=== PATIENT | male | born 1965 | race Caucasian/White ===

== ENCOUNTER 2020-08-28 21:58 | Inpatient (IN) | payer MEDICAID ==
[~2020-08-28] VITALS: Ht 177.8 cm; Wt 70.3 kg
[~2020-08-28 21:58] MED LIST: ALBU2.5V13 NEB; APIX5TAB3 PO; ASPI-611 PO; CARV-50 PO; FOLI0.4T14 PO; FURO-150 PO; HYDR-4069 PO; ISOS30TA84 PO; NICO-687 TOP; NITR0.4T51 SL; OMEP-50 PO; POTA10CA44 PO; PYRI25TA4 PO; THIA50TA10 PO; TIOT18CA3 IH
[2020-08-28 23:21] LABS: HEMOGLOBIN 9.3 g/dl (14.0-17.9); MEAN CORPUSCULAR HGB CONC 32.6 g/dL (33.0-36.5)
[2020-08-28 23:23] LABS: BASOPHILS # (AUTO) 0.2 X10'3 (0-0.2); BASOPHILS % (AUTO) 1.2 % (0-1); EOSINOPHILS # (AUTO) 0.2 X10'3 (0-0.9); HEMATOCRIT 28.7 % (42.0-52.0); LYMPHOCYTES # (AUTO) 1.5 X10'3 (1.1-4.8); LYMPHOCYTES % (AUTO) 11.9 % (21-51); MEAN CORPUSCULAR HEMOGLOBIN 27.6 PG (27.0-31.0); MEAN CORPUSCULAR VOLUME 84.6 FL (78-98); MEAN PLATELET VOLUME 10.1 FL (7.4-10.4); MONOCYTES # (AUTO) 0.9 X10'3 (0-0.9); MONOCYTES % (AUTO) 7.4 % (2-12); NEUTROPHILS # (AUTO) 9.6 X10'3 (1.8-7.7); NEUTROPHILS % (AUTO) 77.5 % (42-75); PLATELET COUNT 332 X10'3 (140-440); RED BLOOD COUNT 3.39 X10'6 (4.70-6.10); RED CELL DISTRIBUTION WIDTH 16.7 % (11.5-14.5); WHITE BLOOD COUNT 12.4 X10'3 (4.5-11.0)
[2020-08-28 23:25] LABS: D-DIMER 1.08 MG/L FEU (0-0.50)
[2020-08-28 23:29] LABS: ALANINE AMINOTRANSFERASE 25 U/L (12-78); ALBUMIN 3.6 G/DL (3.4-5.0); ALBUMIN/GLOBULIN RATIO 0.9 (1.1-1.5); ALKALINE PHOSPHATASE 97 IU/L (46-116); ANION GAP 13 (8-16); ASPARTATE AMINO TRANSFERASE 23 U/L (10-37); BILIRUBIN,TOTAL 0.5 MG/DL (0.1-1.0); BLOOD UREA NITROGEN 41 MG/DL (7-18); BUN/CREATININE RATIO 13.1 (5.4-32.0); CALCIUM 9.3 MG/DL (8.5-10.1); CHLORIDE 102 MMOL/L (99-107); CREATININE 3.14 MG/DL (0.60-1.10); GLUCOSE 117 MG/DL (70-104); POTASSIUM 3.7 MMOL/L (3.5-5.1); SODIUM 139 MMOL/L (135-145); TOTAL CARBON DIOXIDE 24.5 MMOL/L (24-32); TOTAL PROTEIN 7.4 G/DL (6.4-8.2); eGFR 21 ML/MIN
[2020-08-28 23:35] LABS: MAGNESIUM 2.6 MG/DL (1.5-2.4)
[2020-08-28] MEDS ORDERED: morphine 4 MG/ML inj SYRINge IV ONE (23:50)
[2020-08-28] MEDS ORDERED: nitroGLYCERIN-Tridil 50MG/D5W 250 ML IV SCH (23:50)
[2020-08-29] VITALS (21 sets, daily range): BP systolic 130–180; BP diastolic 82–122
[2020-08-29] MEDS ORDERED: VITAMIN B6 PO (00:12)
[2020-08-29] MEDS ORDERED: ALBU18HF2 INH (00:12)
[2020-08-29] MEDS ORDERED: ISOS40TA14 PO (00:12)
[2020-08-29] MEDS ORDERED: nicotine 21mg patch - 24 hr TD ONE (00:20)
[2020-08-29] MEDS ORDERED: ALBUTEROL INHALER 1 PUFF/90 MCG INHALER IH PRN (00:20)
[2020-08-29 00:35] LABS: URINE AMPHETAMINE SCREEN NEGATIVE (Neg); URINE BARBITUATE SCREEN NEGATIVE (Neg); URINE BENZODIAZEPINES SCREEN NEGATIVE (Neg); URINE CANNABINOID SCREEN POSITIVE (Neg); URINE COCAINE SCREEN NEGATIVE (Neg); URINE METHADONE SCREEN NEGATIVE (Neg); URINE OPIATE SCREEN NEGATIVE (Neg); URINE PHENCYCLIDINE SCREEN NEGATIVE (Neg)
--- NOTE | 2020-08-29 02:26 | NUR ---
LABS DRAWN. GIVEN BLANKET AND WATER.
--- NOTE | 2020-08-29 03:30 | NUR ---
REPORT CALLED TO MALKA CARDOZA
--- NOTE | 2020-08-29 04:12 | NUR ---
PT ARRIVED TO ROOM VIA GURNEY AND WAS ABLE TO STAND AND WALK TO THE BED. THE PT WAS PLACED ON THE MONITOR AND ORIENTED TO THE ROOM, CALL LIGHT, AND PLAN OF CARE. HIS QUESTIONS ANSWERED.
[2020-08-29] MEDS ORDERED: nitroGLYCERIN-Tridil 50MG/D5W 250 ML IV PRN (04:40)
[2020-08-29] MEDS ORDERED: isosorbide mononitrate 30mg tab.SR.24H PO ONE (04:40)
[2020-08-29] MEDS ORDERED: carVEDilol 12.5mg tablet PO ONE (04:40)
[2020-08-29] MEDS ORDERED: hydrALAZINE 25 MG tablet PO ONE (04:40)
--- NOTE | 2020-08-29 04:45 | NUR ---
SPOKE WITH DR. TORRES ABOUT THE PT'S CONTINUED HYPERTENSION, RECEIVED ORDER TO GIVE AM BLOOD PRESSURE MEDICATIONS EARLY.
[2020-08-29] MEDS: hydrALAZINE 25 MG tablet PO SCH ×2 (06:45→16:01)
--- NOTE | 2020-08-29 07:23 | NUR ---
Problems reprioritized. Patient report given, questions answered & plan of care reviewed with SONY ACE.
[2020-08-29] MEDS ORDERED: furosemide 10 MG/1 ML 10ml inj IV SCH (08:00)
[2020-08-29] MEDS ORDERED: carVEDilol 12.5mg tablet PO SCH ×2 (08:00→20:00)
[2020-08-29] MEDS ORDERED: isosorbide mononitrate 30mg tab.SR.24H PO SCH (08:00)
[2020-08-29] MEDS: apixaban 5mg tablet PO SCH ×2 (08:48→19:29)
[2020-08-29] MEDS: aspirin 81mg tablet.DR PO SCH (08:48)
[2020-08-29] MEDS: thiamine 100mg tablet PO SCH (08:48)
[2020-08-29] MEDS: pantoprazole 40mg Tablet.DR PO SCH (08:48)
[2020-08-29] MEDS: folic acid 1mg tablet PO SCH (08:48)
--- NOTE | 2020-08-29 10:59 | NUR ---
Dr. Monahan patient rounds update. New order for EKG for chest pain, tums, tylenol and melatonin.
[2020-08-29] MEDS ORDERED: acetaminophen 325mg tablet PO PRN (11:20)
[2020-08-29] MEDS: calcium carbonate 500mg chew tablet PO PRN (11:49)
[2020-08-29] MEDS: acetaminophen 325mg tablet PO PRN ×2 (11:50→21:06)
[2020-08-29] MEDS ORDERED: PYRI-4 PO (12:51)
[2020-08-29] MEDS ORDERED: ISOS20TA8 PO (12:51)
[2020-08-29 14:28] LABS: BASOPHILS # (AUTO) 0.1 X10'3 (0-0.2); BASOPHILS % (AUTO) 1.3 % (0-1); EOSINOPHILS # (AUTO) 0.2 X10'3 (0-0.9); EOSINOPHILS % (AUTO) 2.4 % (0-6); HEMATOCRIT 24.7 % (42.0-52.0); HEMOGLOBIN 8.3 g/dl (14.0-17.9); LYMPHOCYTES # (AUTO) 1.1 X10'3 (1.1-4.8); LYMPHOCYTES % (AUTO) 12.6 % (21-51); MEAN CORPUSCULAR HEMOGLOBIN 28.2 PG (27.0-31.0); MEAN CORPUSCULAR HGB CONC 33.6 g/dL (33.0-36.5); MEAN PLATELET VOLUME 9.9 FL (7.4-10.4); MONOCYTES # (AUTO) 0.7 X10'3 (0-0.9); MONOCYTES % (AUTO) 8.6 % (2-12); NEUTROPHILS # (AUTO) 6.5 X10'3 (1.8-7.7); NEUTROPHILS % (AUTO) 75.1 % (42-75); PLATELET COUNT 245 X10'3 (140-440); RED BLOOD COUNT 2.95 X10'6 (4.70-6.10); RED CELL DISTRIBUTION WIDTH 16.6 % (11.5-14.5); WHITE BLOOD COUNT 8.6 X10'3 (4.5-11.0)
[2020-08-29 14:42] LABS: ALBUMIN 2.8 G/DL (3.4-5.0); ANION GAP 9 (8-16); BLOOD UREA NITROGEN 40 MG/DL (7-18); BUN/CREATININE RATIO 12.7 (5.4-32.0); CALCIUM 9.2 MG/DL (8.5-10.1); CHLORIDE 99 MMOL/L (99-107); CREATININE 3.16 MG/DL (0.60-1.10); GLUCOSE 120 MG/DL (70-104); MAGNESIUM 2.4 MG/DL (1.5-2.4); POTASSIUM 3.3 MMOL/L (3.5-5.1); SODIUM 134 MMOL/L (135-145); TOTAL CARBON DIOXIDE 25.8 MMOL/L (24-32); TROPONIN I 0.04 NG/ML (0.0-0.05); eGFR 20 ML/MIN
[2020-08-29 14:47] LABS: PHOSPHORUS 4.8 MG/DL (2.3-4.5)
[2020-08-29] MEDS ORDERED: potassium Cl 40MEQ/1/2NS 520ml 520 ML IV PRN (15:20)
[2020-08-29] MEDS ORDERED: potassium Cl 20 mEq SR tablet PO PRN ×2 (15:20)
[2020-08-29] MEDS ORDERED: magnesium Cl slow-release 64mg tablet PO PRN (15:20)
[2020-08-29] MEDS ORDERED: magnesium 4gm in 100ml NS 100 ML IV PRN (15:20)
[2020-08-29] MEDS: albuterol 2.5 MG/3 ML nebule NEB PRN ×2 (16:48→19:50)
--- NOTE | 2020-08-29 17:38 | NUR ---
Dr. Weiner at bedside, titrating nitro gtt up due to increasing BP. MD increased Coreg to 25mg BID.
--- NOTE | 2020-08-29 18:30 | NUR ---
Patient in room CICU 2007. I have received report from Love Gama RN and had the opportunity to ask questions and assume patient care.
[2020-08-29] MEDS: K and/or MAG REPLACEMENT MC SCH (20:00)
[2020-08-29] MEDS ORDERED: furosemide 20 MG/2 ML vial IV SCH (20:00)
[2020-08-29] MEDS ORDERED: Melatonin 3mg tablet PO SCH (21:00)
[2020-08-29] MEDS: Melatonin 3mg tablet PO SCH (21:00)
[2020-08-30] VITALS (21 sets, daily range): BP systolic 129–169; BP diastolic 79–119
[2020-08-30] MEDS: hydrALAZINE 25 MG tablet PO SCH ×4 (00:16→23:46)
[2020-08-30] MEDS: albuterol 2.5 MG/3 ML nebule NEB PRN ×2 (03:37→07:40)
--- NOTE | 2020-08-30 06:13 | NUR ---
Problems reprioritized. Patient report given, questions answered & plan of care reviewed with Teofilo ACE.
--- NOTE | 2020-08-30 06:25 | NUR ---
Patient in room CICU 2008. I have received report from Sergey ACE and had the opportunity to ask questions and assume patient care.
[2020-08-30 06:34] LABS: BASOPHILS # (AUTO) 0.1 X10'3 (0-0.2); EOSINOPHILS # (AUTO) 0.3 X10'3 (0-0.9); EOSINOPHILS % (AUTO) 3.4 % (0-6); HEMATOCRIT 24.8 % (42.0-52.0); HEMOGLOBIN 8.3 g/dl (14.0-17.9); LYMPHOCYTES # (AUTO) 1.3 X10'3 (1.1-4.8); LYMPHOCYTES % (AUTO) 17.4 % (21-51); MEAN CORPUSCULAR HEMOGLOBIN 28.2 PG (27.0-31.0); MEAN CORPUSCULAR HGB CONC 33.3 g/dL (33.0-36.5); MEAN CORPUSCULAR VOLUME 84.5 FL (78-98); MEAN PLATELET VOLUME 10.6 FL (7.4-10.4); MONOCYTES # (AUTO) 0.6 X10'3 (0-0.9); MONOCYTES % (AUTO) 7.6 % (2-12); NEUTROPHILS # (AUTO) 5.3 X10'3 (1.8-7.7); NEUTROPHILS % (AUTO) 69.6 % (42-75); PLATELET COUNT 225 X10'3 (140-440); RED BLOOD COUNT 2.94 X10'6 (4.70-6.10); RED CELL DISTRIBUTION WIDTH 16.5 % (11.5-14.5); WHITE BLOOD COUNT 7.6 X10'3 (4.5-11.0)
[2020-08-30 06:51] LABS: ANION GAP 13 (8-16); BLOOD UREA NITROGEN 43 MG/DL (7-18); CALCIUM 8.8 MG/DL (8.5-10.1); CHLORIDE 100 MMOL/L (99-107); CREATININE 3.31 MG/DL (0.60-1.10); GLUCOSE 115 MG/DL (70-104); POTASSIUM 3.1 MMOL/L (3.5-5.1); SODIUM 137 MMOL/L (135-145); TOTAL CARBON DIOXIDE 24.2 MMOL/L (24-32); eGFR 19 ML/MIN
[2020-08-30] MEDS: apixaban 5mg tablet PO SCH ×2 (07:11→20:31)
[2020-08-30] MEDS: thiamine 100mg tablet PO SCH (07:11)
[2020-08-30] MEDS: folic acid 1mg tablet PO SCH (07:11)
[2020-08-30] MEDS: pantoprazole 40mg Tablet.DR PO SCH (07:11)
[2020-08-30] MEDS: aspirin 81mg tablet.DR PO SCH (07:12)
[2020-08-30] MEDS: furosemide 20MG tablet PO SCH ×2 (07:12→20:31)
[2020-08-30 07:16] LABS: ANISOCYTOSIS 1+; HYPOCHROMASIA 1+; LARGE PLATELETS FEW; PLATELET ESTIMATE NORMAL; POLYCHROMASIA 1+
[2020-08-30] MEDS: K and/or MAG REPLACEMENT MC SCH (08:00)
[2020-08-30] MEDS ORDERED: EPIN11.7 IH (09:04)
--- NOTE | 2020-08-30 10:30 | NUR ---
MD aware of patient's BP, nitro has been off since 08/29, K 3.1 and Cr 3.31; orders received for 20 meq PO potassium. New orders received.
[2020-08-30] MEDS ORDERED: potassium Cl 20 mEq SR tablet PO STA (11:04)
[2020-08-30] MEDS ORDERED: NICOTINE POLACRILEX 2 MG LOZENGE BC PRN (11:25)
[2020-08-30] MEDS: nicotine 21mg patch - 24 hr TD SCH (11:44)
[2020-08-30] MEDS ORDERED: carVEDilol 12.5mg tablet PO ONE (14:30)
[2020-08-30 16:33] LABS: ABG HCO3 17.8 mmol/L (22.0-26.0); ABG PCO2 (T) 25.9 mmHg (35.0-48.0); ABG PO2 (T) 76.6 mmHg (75.0-100.0); ALLEN'S TEST POSITIVE; FCOHb 0.3 % (0.0-3.9); FLOW 3 L/min; FMetHb 0.4 % (0.0-1.5); FO2Hb 94.3 % (94-97); TOTAL HEMOGLOBIN 9.6 G/dl (14.0-18.0)
[2020-08-30] MEDS ORDERED: LORazepam 0.5 MG tablet PO ONE (16:50)
[2020-08-30] MEDS: isosorbide mononitrate 30mg tab.SR.24H PO SCH (16:56)
--- NOTE | 2020-08-30 17:05 | NUR ---
Report called to receiving nurseLatesha RN. Transferred via wheel chair with all Belongings: shoes, jeans, jacket, and wallet. home medications sent to pharmacy. Special Issues communicated to receiving nurse. Addendum: 08/30/20 at 1733 by Zhen Aden RN cell phone and binitrotoluene operator sent with patient
--- NOTE | 2020-08-30 17:25 | NUR ---
pt transferred to [address] with all belongings; oriented to room and call light.
--- NOTE | 2020-08-30 17:53 | NUR ---
Patient arrived from ICU per wheelchair. Alert and oriented x3. C/O of SOB bid writer elevated the head of bed full set os vitals taken pt's SP o2 is 98% on 3L NC. Encouraged patient to prone to improve lung expansion. Report received from Zhen ACE. Will continue to monitor. Dori ACE
--- NOTE | 2020-08-30 18:24 | NUR ---
Patient in room PCU 3025. I have received report from Dori ACE and had the opportunity to ask questions and assume patient care.
[2020-08-30] MEDS: Melatonin 3mg tablet PO SCH (20:31)
[2020-08-30] MEDS: carVEDilol 12.5mg tablet PO SCH (22:23)
--- NOTE | 2020-08-31 06:05 | NUR ---
Problems reprioritized. Patient report given, questions answered & plan of care reviewed with Cecy ACE.
--- NOTE | 2020-08-31 06:21 | NUR ---
Patient in room PCU 3025. I have received report from MALKA Catalan and had the opportunity to ask questions and assume patient care.
[2020-08-31 08:00] VITALS: BP 162/99
[2020-08-31] MEDS: folic acid 1mg tablet PO SCH (09:04)
[2020-08-31] MEDS: isosorbide mononitrate 30mg tab.SR.24H PO SCH (09:04)
[2020-08-31] MEDS: hydrALAZINE 25 MG tablet PO SCH ×3 (09:05→23:24)
[2020-08-31] MEDS: apixaban 5mg tablet PO SCH ×2 (09:05→20:03)
[2020-08-31] MEDS: pantoprazole 40mg Tablet.DR PO SCH (09:05)
[2020-08-31] MEDS: carVEDilol 12.5mg tablet PO SCH ×2 (09:06→20:03)
[2020-08-31] MEDS: furosemide 20MG tablet PO SCH ×2 (09:06→20:03)
[2020-08-31] MEDS: thiamine 100mg tablet PO SCH (09:06)
[2020-08-31] MEDS: aspirin 81mg tablet.DR PO SCH (09:07)
[2020-08-31] MEDS: nicotine 21mg patch - 24 hr TD SCH (09:08)
[2020-08-31 11:00] VITALS: BP 136/94
[2020-08-31 11:12] LABS: BASOPHILS # (AUTO) 0.1 X10'3 (0-0.2); BASOPHILS % (AUTO) 1.3 % (0-1); EOSINOPHILS # (AUTO) 0.2 X10'3 (0-0.9); EOSINOPHILS % (AUTO) 1.9 % (0-6); HEMATOCRIT 26.6 % (42.0-52.0); HEMOGLOBIN 8.7 g/dl (14.0-17.9); LYMPHOCYTES # (AUTO) 0.9 X10'3 (1.1-4.8); LYMPHOCYTES % (AUTO) 11.2 % (21-51); MEAN CORPUSCULAR HEMOGLOBIN 27.7 PG (27.0-31.0); MEAN CORPUSCULAR HGB CONC 32.6 g/dL (33.0-36.5); MEAN CORPUSCULAR VOLUME 85.1 FL (78-98); MEAN PLATELET VOLUME 9.9 FL (7.4-10.4); MONOCYTES # (AUTO) 0.5 X10'3 (0-0.9); MONOCYTES % (AUTO) 6.7 % (2-12); NEUTROPHILS # (AUTO) 6.3 X10'3 (1.8-7.7); NEUTROPHILS % (AUTO) 78.9 % (42-75); PLATELET COUNT 263 X10'3 (140-440); RED BLOOD COUNT 3.13 X10'6 (4.70-6.10); RED CELL DISTRIBUTION WIDTH 16.9 % (11.5-14.5)
[2020-08-31 11:21] LABS: ALANINE AMINOTRANSFERASE 27 U/L (12-78); ALBUMIN 3.1 G/DL (3.4-5.0); ALBUMIN/GLOBULIN RATIO 0.8 (1.1-1.5); ALKALINE PHOSPHATASE 91 IU/L (46-116); ANION GAP 11 (8-16); ASPARTATE AMINO TRANSFERASE 20 U/L (10-37); BILIRUBIN,TOTAL 0.3 MG/DL (0.1-1.0); BLOOD UREA NITROGEN 42 MG/DL (7-18); BUN/CREATININE RATIO 12.7 (5.4-32.0); CALCIUM 8.5 MG/DL (8.5-10.1); CHLORIDE 98 MMOL/L (99-107); CREATININE 3.32 MG/DL (0.60-1.10); GLUCOSE 105 MG/DL (70-104); MAGNESIUM 2.3 MG/DL (1.5-2.4); POTASSIUM 3.8 MMOL/L (3.5-5.1); SODIUM 132 MMOL/L (135-145); TOTAL CARBON DIOXIDE 23.4 MMOL/L (24-32); TOTAL PROTEIN 6.9 G/DL (6.4-8.2); eGFR 19 ML/MIN
--- NOTE | 2020-08-31 14:43 | NUR ---
Received TC from RN stating that pt requesting a snack d/t still being hungry after meals. Pt on a 2 g Na restricted diet with 100% PO intake throughout LOS. Recommend double protein BIDLD for satiety, d/w dietary. Noted that pt with CKD stage 4 secondary to hypertension per MD notes, nephrology following. Will monitor renal labs and make recommendations as appropriate. Addendum: 08/31/20 at [address] Amended: Links added.
[2020-08-31 15:00] VITALS: BP 157/109
[2020-08-31 18:00] VITALS: BP 155/107
--- NOTE | 2020-08-31 18:50 | NUR ---
Problems reprioritized. Patient report given, questions answered & plan of care reviewed with MALKA Fong. Addendum: 08/31/20 at 1855 by Cecy Sethi RN Incorrect chart.
--- NOTE | 2020-08-31 18:53 | NUR ---
Problems reprioritized. Patient report given, questions answered & plan of care reviewed with Yoli ACE.
[2020-08-31 20:00] VITALS: BP 155/107
[2020-08-31] MEDS: Melatonin 3mg tablet PO SCH (20:04)
[2020-08-31 22:39] VITALS: BP 165/110
--- NOTE | 2020-08-31 23:31 | NUR ---
patient complain of chest pain, level of 9. physician notified.
[2020-08-31] MEDS ORDERED: nitroGLYCERIN 1gm ointment UD TP ONE ×2 (23:40→23:55)
[2020-09-01 03:01] VITALS: BP 157/99
[2020-09-01 06:15] LABS: BASOPHILS # (AUTO) 0.1 X10'3 (0-0.2); BASOPHILS % (AUTO) 1.8 % (0-1); EOSINOPHILS # (AUTO) 0.2 X10'3 (0-0.9); EOSINOPHILS % (AUTO) 2.9 % (0-6); HEMATOCRIT 26.6 % (42.0-52.0); HEMOGLOBIN 8.6 g/dl (14.0-17.9); LYMPHOCYTES % (AUTO) 13.6 % (21-51); MEAN CORPUSCULAR HEMOGLOBIN 27.7 PG (27.0-31.0); MEAN CORPUSCULAR HGB CONC 32.4 g/dL (33.0-36.5); MEAN CORPUSCULAR VOLUME 85.4 FL (78-98); MEAN PLATELET VOLUME 9.8 FL (7.4-10.4); MONOCYTES # (AUTO) 0.6 X10'3 (0-0.9); MONOCYTES % (AUTO) 7.6 % (2-12); NEUTROPHILS # (AUTO) 5.6 X10'3 (1.8-7.7); NEUTROPHILS % (AUTO) 74.1 % (42-75); PLATELET COUNT 244 X10'3 (140-440); RED BLOOD COUNT 3.11 X10'6 (4.70-6.10); RED CELL DISTRIBUTION WIDTH 16.7 % (11.5-14.5); WHITE BLOOD COUNT 7.5 X10'3 (4.5-11.0)
--- NOTE | 2020-09-01 06:27 | NUR ---
Report given to and reviewed with Radha ACE.
[2020-09-01 06:44] LABS: ALANINE AMINOTRANSFERASE 30 U/L (12-78); ALBUMIN/GLOBULIN RATIO 0.8 (1.1-1.5); ALKALINE PHOSPHATASE 88 IU/L (46-116); ANION GAP 12 (8-16); ASPARTATE AMINO TRANSFERASE 18 U/L (10-37); BILIRUBIN,TOTAL 0.3 MG/DL (0.1-1.0); BLOOD UREA NITROGEN 47 MG/DL (7-18); BUN/CREATININE RATIO 15.1 (5.4-32.0); CHLORIDE 97 MMOL/L (99-107); CREATININE 3.11 MG/DL (0.60-1.10); GLUCOSE 150 MG/DL (70-104); MAGNESIUM 2.4 MG/DL (1.5-2.4); PHOSPHORUS 4.9 MG/DL (2.3-4.5); POTASSIUM 3.3 MMOL/L (3.5-5.1); SODIUM 132 MMOL/L (135-145); TOTAL CARBON DIOXIDE 22.9 MMOL/L (24-32); TOTAL PROTEIN 6.6 G/DL (6.4-8.2); TROPONIN I < 0.04 NG/ML (0.0-0.05); eGFR 21 ML/MIN
[2020-09-01 06:48] LABS: CALCIUM 8.4 MG/DL (8.5-10.1)
--- NOTE | 2020-09-01 07:14 | NUR ---
DR SNIDER PAGED FOR K OF 3.3 PATIENT DONITA ANGEL [id number], WITH BUN 47 CREAT 3.11, PATIENT K THIS AM WAS 3.3, DO YOU WANT TO REPLACE ? THANK YOU
[2020-09-01 07:44] VITALS: BP 172/110
[2020-09-01] MEDS: pantoprazole 40mg Tablet.DR PO SCH (08:32)
[2020-09-01] MEDS: nicotine 21mg patch - 24 hr TD SCH (08:32)
[2020-09-01] MEDS: apixaban 5mg tablet PO SCH ×2 (08:32→20:17)
[2020-09-01] MEDS: hydrALAZINE 25 MG tablet PO SCH ×2 (08:33→16:30)
[2020-09-01] MEDS: folic acid 1mg tablet PO SCH (08:33)
[2020-09-01] MEDS: furosemide 20MG tablet PO SCH (08:33)
[2020-09-01] MEDS: thiamine 100mg tablet PO SCH (08:33)
[2020-09-01] MEDS: aspirin 81mg tablet.DR PO SCH (08:33)
[2020-09-01] MEDS: isosorbide mononitrate 30mg tab.SR.24H PO SCH (08:33)
[2020-09-01] MEDS: carVEDilol 12.5mg tablet PO SCH ×2 (08:34→20:17)
[2020-09-01 12:13] VITALS: BP 144/93
--- NOTE | 2020-09-01 13:25 | NUR ---
Report received from EXTENSION AGENT, Radha
--- NOTE | 2020-09-01 13:28 | NUR ---
GAVE REPORT TO JANET FOR PATIENT BEING TRANSFERED TO [facility]
[2020-09-01 14:08] VITALS: BP 164/109
--- NOTE | 2020-09-01 15:08 | NUR ---
Kassandra RN titrated the O2 to 2lpm/nc. I did a spot check of O2 sat per the nurse's request. Patient was doing 90-91% and he said he is short of breath so I put him back to 3lpm/nc for now. Will let the primary nurse Kassandra when she comes back from lunch.
--- NOTE | 2020-09-01 16:10 | NUR ---
Dr Tillman notified of K+=3.3. states no replacement due to CKD.
--- NOTE | 2020-09-01 18:15 | NUR ---
Problems reprioritized. Patient report given, questions answered & plan of care reviewed with MALKA Stephenson.
--- NOTE | 2020-09-01 18:15 | NUR ---
Patient in room ADRIAN 349. I have received report from Kassandra ACE and had the opportunity to ask questions and assume patient care.
[2020-09-01 19:00] VITALS: BP 164/93
[2020-09-01 20:17] VITALS: BP 167/117
[2020-09-01] MEDS: Melatonin 3mg tablet PO SCH (20:18)
[2020-09-01] MEDS: furosemide 40mg tablet PO SCH (20:18)
--- NOTE | 2020-09-01 22:05 | NUR ---
Called MD regarding pt. c/o 03/14 pain to chest area. Pt. states that it is mid sternal, but does not want another EKG done and states usually when in the hospital with pain, they give him morphine. New order for MS 2mg, q2hr, prn pain.
[2020-09-01] MEDS: morphine 2 MG/ML inj. syringe IV PRN (22:37)
[2020-09-02] VITALS: BP 144/81
[2020-09-02] MEDS: hydrALAZINE 25 MG tablet PO SCH ×4 (00:05→23:31)
[2020-09-02] MEDS: morphine 2 MG/ML inj. syringe IV PRN ×4 (02:57→20:29)
--- NOTE | 2020-09-02 03:00 | NUR ---
Pt awoke and c/o pain to sternal region. Morphine given and MD contacted for any new orders. New order for troponin to be drawn with AM labs.
--- NOTE | 2020-09-02 03:30 | NUR ---
COMMUNITY ENGAGEMENT LEADER in with pt. to start new PIV as difficult stick.
--- NOTE | 2020-09-02 03:50 | NUR ---
manager ob started new PIV to left pinky finger.
[2020-09-02 06:18] LABS: EOSINOPHILS # (AUTO) 0.2 X10'3 (0-0.9); HEMATOCRIT 25.4 % (42.0-52.0); RED BLOOD COUNT 3.02 X10'6 (4.70-6.10)
[2020-09-02 06:20] LABS: BASOPHILS # (AUTO) 0.1 X10'3 (0-0.2); BASOPHILS % (AUTO) 1.4 % (0-1); EOSINOPHILS % (AUTO) 3.3 % (0-6); HEMOGLOBIN 8.4 g/dl (14.0-17.9); LYMPHOCYTES # (AUTO) 1.1 X10'3 (1.1-4.8); MEAN CORPUSCULAR HEMOGLOBIN 27.9 PG (27.0-31.0); MEAN CORPUSCULAR HGB CONC 33.1 g/dL (33.0-36.5); MEAN CORPUSCULAR VOLUME 84.2 FL (78-98); MEAN PLATELET VOLUME 10.4 FL (7.4-10.4); MONOCYTES # (AUTO) 0.8 X10'3 (0-0.9); MONOCYTES % (AUTO) 10.1 % (2-12); NEUTROPHILS # (AUTO) 5.3 X10'3 (1.8-7.7); NEUTROPHILS % (AUTO) 70.2 % (42-75); PLATELET COUNT 239 X10'3 (140-440); WHITE BLOOD COUNT 7.6 X10'3 (4.5-11.0)
--- NOTE | 2020-09-02 06:20 | NUR ---
Problems reprioritized. Patient report given, questions answered & plan of care reviewed with Hannah Riggins.
[2020-09-02 06:38] LABS: ALANINE AMINOTRANSFERASE 31 U/L (12-78); ALBUMIN 2.9 G/DL (3.4-5.0); ALBUMIN/GLOBULIN RATIO 0.8 (1.1-1.5); ALKALINE PHOSPHATASE 82 IU/L (46-116); ANION GAP 13 (8-16); ASPARTATE AMINO TRANSFERASE 20 U/L (10-37); BILIRUBIN,TOTAL 0.3 MG/DL (0.1-1.0); BLOOD UREA NITROGEN 49 MG/DL (7-18); BUN/CREATININE RATIO 15.9 (5.4-32.0); CALCIUM 8.8 MG/DL (8.5-10.1); CHLORIDE 100 MMOL/L (99-107); CREATININE 3.08 MG/DL (0.60-1.10); GLUCOSE 113 MG/DL (70-104); MAGNESIUM 2.2 MG/DL (1.5-2.4); PHOSPHORUS 4.9 MG/DL (2.3-4.5); POTASSIUM 3.2 MMOL/L (3.5-5.1); SODIUM 135 MMOL/L (135-145); TOTAL CARBON DIOXIDE 22.5 MMOL/L (24-32); TOTAL PROTEIN 6.5 G/DL (6.4-8.2); TROPONIN I < 0.04 NG/ML (0.0-0.05); eGFR 21 ML/MIN
[2020-09-02 07:26] VITALS: BP 155/99
[2020-09-02] MEDS: thiamine 100mg tablet PO SCH (10:14)
[2020-09-02] MEDS: aspirin 81mg tablet.DR PO SCH (10:14)
[2020-09-02] MEDS: pantoprazole 40mg Tablet.DR PO SCH (10:15)
[2020-09-02] MEDS: apixaban 5mg tablet PO SCH ×2 (10:15→20:23)
[2020-09-02] MEDS: furosemide 40mg tablet PO SCH ×2 (10:15→20:23)
[2020-09-02] MEDS: carVEDilol 12.5mg tablet PO SCH ×2 (10:15→20:25)
[2020-09-02] MEDS: folic acid 1mg tablet PO SCH (10:15)
[2020-09-02] MEDS: nicotine 21mg patch - 24 hr TD SCH (10:16)
[2020-09-02] MEDS: isosorbide mononitrate 30mg tab.SR.24H PO SCH (10:18)
[2020-09-02 11:44] VITALS: BP 164/102
--- NOTE | 2020-09-02 18:15 | NUR ---
O2 Sat at rest on room air:_88__% If below 89%: Recovery O2 Sat at rest on _3__LPM:_91__%:___% via NC (mask/nasal cannula, etc..) No further documentation is necessary. If O2 Sat did not drop below 89% on room air,ambulate patient on room air. O2 Sat while ambulating on room air:_79__% Recovery O2 Sat while ambulating on ___LPM:___% No further documentation is necessary. If patient does not drop below 89% while ambulating, he/she does not qualify for home O2.
--- NOTE | 2020-09-02 18:41 | NUR ---
Problems reprioritized. Patient report given, questions answered & plan of care reviewed with MALKA WEINBERG.
--- NOTE | 2020-09-02 18:50 | NUR ---
Paged with regard to replacing potassium as now down from 3.3 yesterday to 3.2 today.
--- NOTE | 2020-09-02 18:50 | NUR ---
Patient in room ADRIAN 349. I have received report from Hannah ACE and had the opportunity to ask questions and assume patient care.
[2020-09-02 19:40] VITALS: BP 164/92
--- NOTE | 2020-09-02 20:16 | NUR ---
paged Quinn CHAVEZ as potassium was 3.2 today.
[2020-09-02] MEDS ORDERED: magnesium Cl slow-release 64mg tablet PO PRN (20:20)
[2020-09-02] MEDS ORDERED: potassium Cl 40MEQ/1/2NS 520ml 520 ML IV PRN (20:20)
[2020-09-02] MEDS ORDERED: potassium Cl 20 mEq SR tablet PO PRN (20:20)
[2020-09-02] MEDS ORDERED: magnesium 4gm in 100ml NS 100 ML IV PRN (20:20)
[2020-09-02] MEDS: potassium Cl 20 mEq SR tablet PO PRN (20:23)
[2020-09-02] MEDS: Melatonin 3mg tablet PO SCH (20:28)
[2020-09-02] MEDS: albuterol 2.5 MG/3 ML nebule NEB PRN (20:53)
[2020-09-03] VITALS: BP 150/96
[2020-09-03] MEDS: potassium Cl 20 mEq SR tablet PO PRN (00:56)
[2020-09-03] MEDS: morphine 2 MG/ML inj. syringe IV PRN ×5 (04:38→21:14)
--- NOTE | 2020-09-03 06:30 | NUR ---
Problems reprioritized. Patient report given, questions answered & plan of care reviewed with Virginia ACE.
--- NOTE | 2020-09-03 06:46 | NUR ---
Patient in room ADRIAN 349. I have received report from MALKA Stephenson and had the opportunity to ask questions and assume patient care.
[2020-09-03 07:24] VITALS: BP 155/103
[2020-09-03 07:31] LABS: BASOPHILS # (AUTO) 0.1 X10'3 (0-0.2); BASOPHILS % (AUTO) 1.4 % (0-1); EOSINOPHILS # (AUTO) 0.3 X10'3 (0-0.9); EOSINOPHILS % (AUTO) 3.2 % (0-6); HEMATOCRIT 26.7 % (42.0-52.0); HEMOGLOBIN 8.7 g/dl (14.0-17.9); LYMPHOCYTES # (AUTO) 1.3 X10'3 (1.1-4.8); LYMPHOCYTES % (AUTO) 14.3 % (21-51); MEAN CORPUSCULAR HGB CONC 32.6 g/dL (33.0-36.5); MEAN PLATELET VOLUME 10.7 FL (7.4-10.4); MONOCYTES % (AUTO) 10.4 % (2-12); NEUTROPHILS # (AUTO) 6.5 X10'3 (1.8-7.7); NEUTROPHILS % (AUTO) 70.7 % (42-75); PLATELET COUNT 250 X10'3 (140-440); RED CELL DISTRIBUTION WIDTH 16.7 % (11.5-14.5); WHITE BLOOD COUNT 9.2 X10'3 (4.5-11.0)
[2020-09-03 07:50] LABS: ALANINE AMINOTRANSFERASE 31 U/L (12-78); ALBUMIN 3.1 G/DL (3.4-5.0); ALBUMIN/GLOBULIN RATIO 0.8 (1.1-1.5); ALKALINE PHOSPHATASE 86 IU/L (46-116); ANION GAP 10 (8-16); ASPARTATE AMINO TRANSFERASE 17 U/L (10-37); BILIRUBIN,TOTAL 0.3 MG/DL (0.1-1.0); BLOOD UREA NITROGEN 55 MG/DL (7-18); BUN/CREATININE RATIO 15.6 (5.4-32.0); CALCIUM 9.2 MG/DL (8.5-10.1); CHLORIDE 100 MMOL/L (99-107); CREATININE 3.52 MG/DL (0.60-1.10); GLUCOSE 116 MG/DL (70-104); MAGNESIUM 2.3 MG/DL (1.5-2.4); PHOSPHORUS 5.3 MG/DL (2.3-4.5); POTASSIUM 3.8 MMOL/L (3.5-5.1); SODIUM 135 MMOL/L (135-145); TOTAL CARBON DIOXIDE 24.9 MMOL/L (24-32); TOTAL PROTEIN 6.8 G/DL (6.4-8.2); eGFR 18 ML/MIN
[2020-09-03] MEDS: K and/or MAG REPLACEMENT MC SCH ×2 (08:00→19:16)
[2020-09-03] MEDS: furosemide 40mg tablet PO SCH ×2 (08:26→19:02)
[2020-09-03] MEDS: folic acid 1mg tablet PO SCH (08:26)
[2020-09-03] MEDS: carVEDilol 12.5mg tablet PO SCH ×2 (08:26→19:02)
[2020-09-03] MEDS: isosorbide mononitrate 30mg tab.SR.24H PO SCH (08:26)
[2020-09-03] MEDS: pantoprazole 40mg Tablet.DR PO SCH (08:27)
[2020-09-03] MEDS: hydrALAZINE 25 MG tablet PO SCH ×2 (08:27→16:44)
[2020-09-03] MEDS: apixaban 5mg tablet PO SCH ×2 (08:27→19:02)
[2020-09-03] MEDS: aspirin 81mg tablet.DR PO SCH (08:27)
[2020-09-03] MEDS: thiamine 100mg tablet PO SCH (08:27)
[2020-09-03] MEDS: nicotine 21mg patch - 24 hr TD SCH (08:31)
[2020-09-03 09:40] LABS: ANISOCYTOSIS 1+; PLATELET ESTIMATE NORMAL
[2020-09-03 09:41] LABS: HYPOCHROMASIA 1+; POIKILOCYTOSIS 1+; POLYCHROMASIA FEW
[2020-09-03 09:42] LABS: BURR CELLS FEW
[2020-09-03] MEDS ORDERED: nitroGLYCERIN 0.4mg SUBLingual tab SL PRN (10:20)
[2020-09-03] MEDS ORDERED: EPINEPHRINE IH PRN (10:20)
[2020-09-03] MEDS ORDERED: ipratropium 0.5 MG/2.5ML nebule IH PRN (10:40)
[2020-09-03] MEDS: calcium carbonate 500mg chew tablet PO PRN (11:14)
[2020-09-03 11:31] VITALS: BP 152/93
--- NOTE | 2020-09-03 11:58 | NUR ---
Initial: Pt presented to ER with shortness of breath and chest pain and was admitted with CHF exacerbation, per ED note. Per MD progress note, pt admitted with LAY in addition of CKD Stage 5, and acute hypoxemic respiratory failure possibly r/t heart failure. Phosphorous is elevated which may be related to LAY/CKD. Pt is currently receiving tums, which can help lower phosphorous. Pt is currently feeling some shortness of breath, however PO intake on sodium restricted diet is average 100% and is meeting nutrient needs. Last BM 09/02. Documented wt appears to be inconsistent with gained and loss 17kg within 5 days, may be an error due to bed scale. Will continue to monitor for nutrient needs. Recs: 1) Continue sodium restricted diet, double protein BIDLD 2) Bowel care per Rx 3) Scaled wt per Rx Addendum: 09/03/20 at [address] Amended: Links added. Addendum: 09/03/20 at [address] RD agree with patient note
[2020-09-03] MEDS ORDERED: hydrALAZINE 25 MG tablet PO SCH (13:00)
--- NOTE | 2020-09-03 18:24 | NUR ---
Problems reprioritized. Patient report given, questions answered & plan of care reviewed with MALKA Stephenson.
--- NOTE | 2020-09-03 18:30 | NUR ---
Patient in room ADRIAN 349. I have received report from Virginia Riggins and had the opportunity to ask questions and assume patient care.
[2020-09-03 19:00] VITALS: BP 180/106
[2020-09-03 19:50] VITALS: BP 156/96
[2020-09-03] MEDS ORDERED: carVEDilol 12.5mg tablet PO SCH (20:00)
[2020-09-03] MEDS ORDERED: magnesium hydroxide 30ml (MOM) UD suspension PO PRN (20:10)
--- NOTE | 2020-09-03 20:41 | NUR ---
Pt. c/o constipation/hard stools. New orders for colace and prn MOM added.
[2020-09-03] MEDS: albuterol 2.5 MG/3 ML nebule NEB PRN (20:49)
[2020-09-03] MEDS: docusate sod 100mg capsule PO SCH (21:10)
[2020-09-03] MEDS: Melatonin 3mg tablet PO SCH (21:10)
[2020-09-04] VITALS: BP 124/91
[2020-09-04] MEDS: hydrALAZINE 25 MG tablet PO SCH ×3 (00:23→17:52)
[2020-09-04] MEDS: morphine 2 MG/ML inj. syringe IV PRN ×4 (00:27→20:44)
[2020-09-04 06:27] LABS: BASOPHILS # (AUTO) 0.1 X10'3 (0-0.2); BASOPHILS % (AUTO) 1.5 % (0-1); EOSINOPHILS # (AUTO) 0.3 X10'3 (0-0.9); EOSINOPHILS % (AUTO) 3.5 % (0-6); HEMATOCRIT 24.2 % (42.0-52.0); HEMOGLOBIN 8.1 g/dl (14.0-17.9); LYMPHOCYTES # (AUTO) 1.2 X10'3 (1.1-4.8); LYMPHOCYTES % (AUTO) 13.7 % (21-51); MEAN CORPUSCULAR HEMOGLOBIN 28.1 PG (27.0-31.0); MEAN CORPUSCULAR HGB CONC 33.3 g/dL (33.0-36.5); MEAN CORPUSCULAR VOLUME 84.6 FL (78-98); MEAN PLATELET VOLUME 9.9 FL (7.4-10.4); MONOCYTES % (AUTO) 11.6 % (2-12); NEUTROPHILS % (AUTO) 69.7 % (42-75); PLATELET COUNT 229 X10'3 (140-440); RED BLOOD COUNT 2.87 X10'6 (4.70-6.10); RED CELL DISTRIBUTION WIDTH 16.9 % (11.5-14.5); WHITE BLOOD COUNT 8.6 X10'3 (4.5-11.0)
[2020-09-04 06:32] LABS: ANION GAP 9 (8-16); BILIRUBIN,TOTAL 0.2 MG/DL (0.1-1.0); BLOOD UREA NITROGEN 61 MG/DL (7-18); BUN/CREATININE RATIO 17.8 (5.4-32.0); CALCIUM 8.9 MG/DL (8.5-10.1); CHLORIDE 102 MMOL/L (99-107); CREATININE 3.43 MG/DL (0.60-1.10); GLUCOSE 130 MG/DL (70-104); MAGNESIUM 2.5 MG/DL (1.5-2.4); PHOSPHORUS 5.1 MG/DL (2.3-4.5); POTASSIUM 3.8 MMOL/L (3.5-5.1); SODIUM 138 MMOL/L (135-145); TOTAL PROTEIN 6.4 G/DL (6.4-8.2); eGFR 19 ML/MIN
[2020-09-04 06:33] LABS: ALANINE AMINOTRANSFERASE 26 U/L (12-78); ALBUMIN 2.9 G/DL (3.4-5.0); ALBUMIN/GLOBULIN RATIO 0.8 (1.1-1.5); ALKALINE PHOSPHATASE 80 IU/L (46-116); ASPARTATE AMINO TRANSFERASE 18 U/L (10-37)
--- NOTE | 2020-09-04 06:35 | NUR ---
Problems reprioritized. Patient report given, questions answered & plan of care reviewed with Freddie ACE.
--- NOTE | 2020-09-04 06:48 | NUR ---
Patient in room ADRIAN 349. I have received report from Seema ACE and had the opportunity to ask questions and assume patient care.
[2020-09-04 07:00] VITALS: BP 152/89
[2020-09-04 07:39] VITALS: BP 152/89
[2020-09-04] MEDS: pantoprazole 40mg Tablet.DR PO SCH (07:53)
[2020-09-04] MEDS: docusate sod 100mg capsule PO SCH ×2 (07:54→20:51)
[2020-09-04] MEDS: pyridoxine 50mg tablet PO SCH (07:54)
[2020-09-04] MEDS: aspirin 81mg tablet.DR PO SCH (07:54)
[2020-09-04] MEDS: thiamine 100mg tablet PO SCH (07:55)
[2020-09-04] MEDS: carVEDilol 12.5mg tablet PO SCH ×2 (07:55→20:49)
[2020-09-04] MEDS: folic acid 1mg tablet PO SCH (07:56)
[2020-09-04] MEDS: furosemide 40mg tablet PO SCH ×2 (07:56→20:50)
[2020-09-04] MEDS: apixaban 5mg tablet PO SCH ×2 (07:56→20:51)
[2020-09-04] MEDS: nicotine 21mg patch - 24 hr TD SCH (07:56)
[2020-09-04] MEDS: K and/or MAG REPLACEMENT MC SCH ×2 (08:00→20:00)
[2020-09-04] MEDS: acetaminophen 325mg tablet PO PRN (08:40)
--- NOTE | 2020-09-04 10:44 | NUR ---
Assessment completed by Brandi STANLEY, reviewed and documented appropriately.
[2020-09-04 11:00] VITALS: BP 123/63
--- NOTE | 2020-09-04 18:43 | NUR ---
Problems reprioritized. Patient report given, questions answered & plan of care reviewed with Porsche ACE.
--- NOTE | 2020-09-04 18:45 | NUR ---
Patient in room ADRIAN 349. I have received report from CHETAN ACE and had the opportunity to ask questions and assume patient care.
[2020-09-04 19:14] VITALS: BP 171/103
[2020-09-04] MEDS: Melatonin 3mg tablet PO SCH (20:46)
[2020-09-05] VITALS: BP 156/94
[2020-09-05] MEDS: hydrALAZINE 25 MG tablet PO SCH ×2 (00:32→08:31)
[2020-09-05 06:28] LABS: BASOPHILS # (AUTO) 0.2 X10'3 (0-0.2); HEMOGLOBIN 8.2 g/dl (14.0-17.9); MEAN CORPUSCULAR VOLUME 84.9 FL (78-98); WHITE BLOOD COUNT 8.7 X10'3 (4.5-11.0)
--- NOTE | 2020-09-05 06:30 | NUR ---
Problems reprioritized. Patient report given, questions answered & plan of care reviewed with TODD ACE.
[2020-09-05 06:36] LABS: BASOPHILS % (AUTO) 2.1 % (0-1); EOSINOPHILS # (AUTO) 0.3 X10'3 (0-0.9); EOSINOPHILS % (AUTO) 3.9 % (0-6); HEMATOCRIT 24.8 % (42.0-52.0); LYMPHOCYTES # (AUTO) 1.3 X10'3 (1.1-4.8); LYMPHOCYTES % (AUTO) 14.9 % (21-51); MEAN CORPUSCULAR HEMOGLOBIN 28.1 PG (27.0-31.0); MEAN CORPUSCULAR HGB CONC 33.1 g/dL (33.0-36.5); MEAN PLATELET VOLUME 10.7 FL (7.4-10.4); MONOCYTES # (AUTO) 0.9 X10'3 (0-0.9); MONOCYTES % (AUTO) 10.8 % (2-12); NEUTROPHILS % (AUTO) 68.3 % (42-75); PLATELET COUNT 220 X10'3 (140-440); RED BLOOD COUNT 2.92 X10'6 (4.70-6.10); RED CELL DISTRIBUTION WIDTH 16.9 % (11.5-14.5)
[2020-09-05 06:51] LABS: ALANINE AMINOTRANSFERASE 28 U/L (12-78); ALBUMIN/GLOBULIN RATIO 0.8 (1.1-1.5); ALKALINE PHOSPHATASE 80 IU/L (46-116); ANION GAP 12 (8-16); ASPARTATE AMINO TRANSFERASE 16 U/L (10-37); BILIRUBIN,TOTAL 0.2 MG/DL (0.1-1.0); BLOOD UREA NITROGEN 64 MG/DL (7-18); BUN/CREATININE RATIO 20.2 (5.4-32.0); CALCIUM 8.7 MG/DL (8.5-10.1); CHLORIDE 97 MMOL/L (99-107); CREATININE 3.17 MG/DL (0.60-1.10); GLUCOSE 137 MG/DL (70-104); MAGNESIUM 2.4 MG/DL (1.5-2.4); PHOSPHORUS 4.9 MG/DL (2.3-4.5); POTASSIUM 3.7 MMOL/L (3.5-5.1); SODIUM 133 MMOL/L (135-145); TOTAL CARBON DIOXIDE 24.3 MMOL/L (24-32); TOTAL PROTEIN 6.6 G/DL (6.4-8.2); eGFR 20 ML/MIN
[2020-09-05] MEDS: morphine 2 MG/ML inj. syringe IV PRN ×3 (07:43→14:26)
[2020-09-05] MEDS: K and/or MAG REPLACEMENT MC SCH (08:00)
[2020-09-05] MEDS: nicotine 21mg patch - 24 hr TD SCH (08:30)
[2020-09-05] MEDS: pantoprazole 40mg Tablet.DR PO SCH (08:30)
[2020-09-05] MEDS: docusate sod 100mg capsule PO SCH (08:32)
[2020-09-05] MEDS: carVEDilol 12.5mg tablet PO SCH (08:32)
[2020-09-05] MEDS: apixaban 5mg tablet PO SCH (08:33)
[2020-09-05] MEDS: folic acid 1mg tablet PO SCH (08:33)
[2020-09-05] MEDS: aspirin 81mg tablet.DR PO SCH (08:33)
[2020-09-05] MEDS: thiamine 100mg tablet PO SCH (08:34)
[2020-09-05] MEDS: furosemide 40mg tablet PO SCH (08:34)
[2020-09-05] MEDS: pyridoxine 50mg tablet PO SCH (08:34)
[2020-09-05 09:20] VITALS: BP 161/102
[2020-09-05] MEDS ORDERED: APIX5TAB3 PO (09:54)
[2020-09-05] MEDS ORDERED: TIOT18CA3 IH (09:54)
[2020-09-05] MEDS ORDERED: ALBU18HF2 INH (09:54)
[2020-09-05 11:00] VITALS: BP 128/82
--- NOTE | 2020-09-05 11:41 | NUR ---
PAGER ID: [phone] MESSAGE: Kya Med/surg [id number] Pt : Elisabeth. Rm: [id number]. Pt D/C'd requesting pain med for home. thanks.
--- NOTE | 2020-09-05 12:09 | NUR ---
Pt D/C'd . pt does not have a ride home. will contact [facility] for ride.
[2020-09-05] MEDS ORDERED: HYDR-3965 PO (15:16)
--- NOTE | 2020-09-05 16:07 | NUR ---
pt discharged home in stable condition. O2 home qualification done prior discharge. Pt O2sat 92-94% on R/A during ambulation. pt requesting pain med for home. notified, encouraged pt to take Tylenol and Ibuprofen combined. Discharge and medication instruction given to pt. IV removed. Pt was taken to main lobby on w/c. Left the hospital via [place] transfer [facility].
== END 2020-09-05 15:59 | disposition home or self-care (01) | DRG 194 ==
LOC: ER 21:59 → ED HOLD 08-29 00:21 → CICU 2S 08-29 03:45 → PCU 3S 08-30 17:43 → SUR 3N 09-01 13:57
PROVIDERS: ADMIT Internal Medicine; ATTEND Internal Medicine
DX: I13.0 Hypertensive heart and chronic kidney disease with heart failure and stage 1 through stage 4 chronic kidney disease, or unspecified chronic kidney disease (principal); I50.23 Acute on chronic systolic (congestive) heart failure; I16.1 Hypertensive emergency; J96.01 Acute respiratory failure with hypoxia; N18.4 Chronic kidney disease, stage 4 (severe); J44.9 Chronic obstructive pulmonary disease, unspecified; D63.8 Anemia in other chronic diseases classified elsewhere; I31.3 Pericardial effusion (noninflammatory); Z95.1 Presence of aortocoronary bypass graft; Z82.49 Family history of ischemic heart disease and other diseases of the circulatory system; I25.2 Old myocardial infarction; I25.119 Atherosclerotic heart disease of native coronary artery with unspecified angina pectoris; K59.00 Constipation, unspecified; N17.9 Acute kidney failure, unspecified; Z87.891 Personal history of nicotine dependence; Z91.19 Patient's noncompliance with other medical treatment and regimen; Z79.899 Other long term (current) drug therapy
CPT/HCPCS: 36415; 36600; 71045; 80048; 80053; 80305; 82803; 83735; 83880; 84100; 84484; 85008; 85018; 85025; 85379; 85610; 87081; 93005; 93308; 94640; 94760; 96365; 96375; 99291; G0378; J1940; J2270; J3490

== ENCOUNTER 2020-10-10 19:29 | Inpatient (IN) | payer MEDICAID ==
[~2020-10-10] VITALS: Ht 177.8 cm; Wt 75.0 kg
[~2020-10-10 19:29] MED LIST changes: +ALBU18HF2 INH; -ALBU2.5V13 NEB; +EPIN11.7 IH; +ISOS20TA8 PO; -ISOS30TA84 PO; -NICO-687 TOP; +PYRI-4 PO; -PYRI25TA4 PO
[2020-10-10 20:17] LABS: BASOPHILS # (AUTO) 0.1 X10'3 (0-0.2); BASOPHILS % (AUTO) 0.8 % (0-1); EOSINOPHILS # (AUTO) 0.1 X10'3 (0-0.9); EOSINOPHILS % (AUTO) 0.8 % (0-6); HEMATOCRIT 28.7 % (42.0-52.0); HEMOGLOBIN 9.4 g/dl (14.0-17.9); LYMPHOCYTES # (AUTO) 1.3 X10'3 (1.1-4.8); LYMPHOCYTES % (AUTO) 13.2 % (21-51); MEAN CORPUSCULAR HEMOGLOBIN 26.4 PG (27.0-31.0); MEAN CORPUSCULAR HGB CONC 32.6 g/dL (33.0-36.5); MEAN CORPUSCULAR VOLUME 81.2 FL (78-98); MEAN PLATELET VOLUME 10.2 FL (7.4-10.4); MONOCYTES # (AUTO) 0.7 X10'3 (0-0.9); MONOCYTES % (AUTO) 7.5 % (2-12); NEUTROPHILS # (AUTO) 7.6 X10'3 (1.8-7.7); NEUTROPHILS % (AUTO) 77.7 % (42-75); PLATELET COUNT 235 X10'3 (140-440); RED BLOOD COUNT 3.54 X10'6 (4.70-6.10); RED CELL DISTRIBUTION WIDTH 19.2 % (11.5-14.5); WHITE BLOOD COUNT 9.7 X10'3 (4.5-11.0)
[2020-10-10 20:27] LABS: ALANINE AMINOTRANSFERASE 25 U/L (12-78); ALBUMIN 3.1 G/DL (3.4-5.0); ALBUMIN/GLOBULIN RATIO 0.8 (1.1-1.5); ALKALINE PHOSPHATASE 105 IU/L (46-116); ANION GAP 15 (8-16); ASPARTATE AMINO TRANSFERASE 30 U/L (10-37); BILIRUBIN,TOTAL 0.4 MG/DL (0.1-1.0); BLOOD UREA NITROGEN 37 MG/DL (7-18); BUN/CREATININE RATIO 11.4 (5.4-32.0); CALCIUM 8.3 MG/DL (8.5-10.1); CHLORIDE 99 MMOL/L (99-107); CREATININE 3.25 MG/DL (0.60-1.10); GLUCOSE 108 MG/DL (70-104); POTASSIUM 3.4 MMOL/L (3.5-5.1); SODIUM 136 MMOL/L (135-145); TOTAL PROTEIN 7.1 G/DL (6.4-8.2); eGFR 20 ML/MIN
[2020-10-10 20:36] LABS: TROPONIN I 0.14 NG/ML (0.0-0.05)
[2020-10-10 21:14] LABS: ANISOCYTOSIS 2+; ELLIPTOCYTES 1+; PLATELET ESTIMATE NORMAL
[2020-10-10 21:16] LABS: SPHEROCYTES FEW
[2020-10-10 21:17] LABS: LARGE PLATELETS FEW; POIKILOCYTOSIS FEW; POLYCHROMASIA FEW
[2020-10-10] MEDS ORDERED: FURO-149 PO (23:24)
[2020-10-10] MEDS ORDERED: VALS1TAB76 PO (23:25)
--- NOTE | 2020-10-11 00:23 | NUR ---
pt moved to hospital bed for comfort. denies any needs at this time other than pain of 8/10 chest pain. was relayed to dr dugan as he was talking with her in room
[2020-10-11] MEDS ORDERED: potassium Cl 40MEQ/1/2NS 520ml 520 ML IV PRN ×2 (01:20)
[2020-10-11] MEDS ORDERED: magnesium Cl slow-release 64mg tablet PO PRN (01:20)
[2020-10-11] MEDS ORDERED: potassium Cl 20 mEq SR tablet PO PRN (01:20)
[2020-10-11] MEDS ORDERED: ondansetron/PF 4mg/2ml inj IV PRN (01:20)
[2020-10-11] MEDS ORDERED: ipratropium/albuterol 3ml nebule NEB PRN ×2 (01:20)
[2020-10-11] MEDS ORDERED: magnesium 2GM in 50ml NS 50 ML IV PRN (01:20)
[2020-10-11] MEDS ORDERED: magnesium 4gm in 100ml NS 100 ML IV PRN (01:20)
[2020-10-11] MEDS: morphine 2 MG/ML inj. syringe IV PRN ×4 (01:46→20:45)
[2020-10-11] MEDS: furosemide 10 MG/1 ML 10ml inj IV SCH ×2 (07:08→20:31)
[2020-10-11] MEDS: heparin, porcine 5000 units/ml vial SQ SCH ×2 (07:09→20:32)
[2020-10-11] MEDS: apixaban 2.5mg tablet PO SCH ×2 (07:09→20:31)
[2020-10-11] MEDS: carVEDilol 12.5mg tablet PO SCH ×2 (07:09→20:31)
[2020-10-11] MEDS: losartan 50mg tablet PO SCH (07:09)
[2020-10-11] MEDS: K and/or MAG REPLACEMENT MC SCH ×2 (08:00→20:00)
[2020-10-11] MEDS: potassium Cl 20 mEq SR tablet PO PRN ×2 (09:49→20:31)
--- NOTE | 2020-10-11 09:54 | NUR ---
ECHO AT BEDSIDE
--- NOTE | 2020-10-11 18:08 | NUR ---
PT REQUESTING PAIN MEDICATION. I EXPLAINED THAT I CAN NOT GIVE ANY MORE PAIN MEDS FOR 50 MINUTS. PT WAS COOPERATIVE AND VERBALIZED UNDERSTANDING.
--- NOTE | 2020-10-11 19:30 | NUR ---
Patient in room PCU 3018. I have received report from Kemi ACE and had the opportunity to ask questions and assume patient care.
--- NOTE | 2020-10-11 19:30 | NUR ---
Received report from Balbina ACE in the ED
--- NOTE | 2020-10-11 19:40 | NUR ---
Patient arrived on the unit, vitals signs stable, belongings with him.
[2020-10-11 22:00] VITALS: BP 105/70
[2020-10-12] MEDS: potassium Cl 20 mEq SR tablet PO PRN ×2 (00:22→04:51)
--- NOTE | 2020-10-12 00:29 | NUR ---
Dr. miguel PAGER ID: [phone] MESSAGE: Re: Charlie Barber 55M rm [id number]. Here for SOB and CHF exacerbation. Patient having difficulty falling asleep, takes Melatonin at home. May we order Melatonin for him? Thank you. Kemi Arias.
[2020-10-12] MEDS ORDERED: Melatonin 3mg tablet PO ONE (00:30)
[2020-10-12 02:00] VITALS: BP 115/72
--- NOTE | 2020-10-12 06:13 | NUR ---
Orientee documentation: I have reviewed and agree with all medications, interventions, assessments performed and documented by Kemi ACE.
--- NOTE | 2020-10-12 06:13 | NUR ---
Problems reprioritized. Patient report given, questions answered & plan of care reviewed with Acacia ACE.
--- NOTE | 2020-10-12 06:13 | NUR ---
Problems reprioritized. Patient report given, questions answered & plan of care reviewed with Acacia Isaacs RN.
--- NOTE | 2020-10-12 06:31 | NUR ---
Patient in room PCU 3018. I have received report from Bronson ACE and had the opportunity to ask questions and assume patient care.
[2020-10-12 07:00] VITALS: BP 118/73
[2020-10-12 07:33] LABS: BASOPHILS # (AUTO) 0.1 X10'3 (0-0.2); BASOPHILS % (AUTO) 1.1 % (0-1); EOSINOPHILS # (AUTO) 0.1 X10'3 (0-0.9); EOSINOPHILS % (AUTO) 1.6 % (0-6); HEMATOCRIT 25.6 % (42.0-52.0); HEMOGLOBIN 8.4 g/dl (14.0-17.9); LYMPHOCYTES # (AUTO) 1.2 X10'3 (1.1-4.8); LYMPHOCYTES % (AUTO) 19.7 % (21-51); MEAN CORPUSCULAR HEMOGLOBIN 27.1 PG (27.0-31.0); MEAN CORPUSCULAR HGB CONC 32.9 g/dL (33.0-36.5); MEAN CORPUSCULAR VOLUME 82.1 FL (78-98); MEAN PLATELET VOLUME 9.8 FL (7.4-10.4); MONOCYTES # (AUTO) 0.6 X10'3 (0-0.9); MONOCYTES % (AUTO) 8.9 % (2-12); NEUTROPHILS # (AUTO) 4.3 X10'3 (1.8-7.7); NEUTROPHILS % (AUTO) 68.7 % (42-75); PLATELET COUNT 181 X10'3 (140-440); RED BLOOD COUNT 3.11 X10'6 (4.70-6.10); RED CELL DISTRIBUTION WIDTH 18.5 % (11.5-14.5); WHITE BLOOD COUNT 6.2 X10'3 (4.5-11.0)
[2020-10-12] MEDS: K and/or MAG REPLACEMENT MC SCH (08:00)
[2020-10-12 08:04] LABS: ALBUMIN 2.5 G/DL (3.4-5.0); ANION GAP 12 (8-16); BLOOD UREA NITROGEN 63 MG/DL (7-18); BUN/CREATININE RATIO 15.4 (5.4-32.0); CALCIUM 7.6 MG/DL (8.5-10.1); CHLORIDE 100 MMOL/L (99-107); CHOL/HDL RATIO 4.3 (0.00-4.99); CHOLESTEROL 183 MG/DL (0-200); CREATININE 4.08 MG/DL (0.60-1.10); GLUCOSE 113 MG/DL (70-104); HDL CHOLESTEROL 43 MG/DL (35-60); LDL CHOLESTEROL 115 MG/DL (50-100); MAGNESIUM 2.4 MG/DL (1.5-2.4); POTASSIUM 4.1 MMOL/L (3.5-5.1); SODIUM 133 MMOL/L (135-145); TOTAL CARBON DIOXIDE 20.7 MMOL/L (24-32); TRIGLYCERIDES 149 MG/DL (20-135); eGFR 15 ML/MIN
[2020-10-12] MEDS: furosemide 10 MG/1 ML 10ml inj IV SCH (08:36)
[2020-10-12] MEDS: apixaban 2.5mg tablet PO SCH (08:37)
[2020-10-12] MEDS: losartan 50mg tablet PO SCH (08:37)
[2020-10-12] MEDS: carVEDilol 12.5mg tablet PO SCH (08:37)
[2020-10-12] MEDS: heparin, porcine 5000 units/ml vial SQ SCH (08:37)
[2020-10-12] MEDS: morphine 2 MG/ML inj. syringe IV PRN (08:42)
[2020-10-12 11:00] VITALS: BP 96/59
--- NOTE | 2020-10-12 12:15 | NUR ---
Paged Dr. Garvin PAGER ID: [phone] MESSAGE: Re: Charlie Barber 3.018B. SHIVA pt is waiting for Discharge to be complete. Thank you Acacia ACE [phone] Addendum: 10/12/20 at 1256 by Acacia Gaspar RN Dr. Garvin responded and put orders in
[2020-10-12] MEDS ORDERED: LOSA50TA64 PO (12:20)
--- NOTE | 2020-10-12 12:53 | NUR ---
Called [facility] to set up transportation. Special Education Paraprofessional, Makenzie, unable to find transportation. Will contact another transporter to try and get rise,if not they will call back regardless. Discharge instructions in system.
--- NOTE | 2020-10-12 13:06 | NUR ---
Jaimee from [facility] called regarding ride. She is working on it.
--- NOTE | 2020-10-12 13:39 | NUR ---
Patient OK to discharge per MD orders. Patient was educated on discharge instructions and medication. I called the pharmacy to call in one medication per discharge instructions. Patients PIV was removed, Tele removed and returned. Pt tolerated well. Patient was able to dress self and was able to walk to the front lobby where he met a silver Honda that was in place to give pt a ride home thru [employer]. All items were collected and sent with patient. All paperwork was documented and sent with pt.
[2020-10-12] MEDS ORDERED: Melatonin 3mg tablet PO SCH (21:00)
== END 2020-10-12 13:37 | disposition home or self-care (01) | DRG 190 ==
LOC: ER 19:29 → ED HOLD 10-11 01:16 → PCU 3S 10-11 19:20
PROVIDERS: ADMIT Internal Medicine; ATTEND Internal Medicine
DX: I21.4 Non-ST elevation (NSTEMI) myocardial infarction (principal); I50.23 Acute on chronic systolic (congestive) heart failure; N17.9 Acute kidney failure, unspecified; K74.60 Unspecified cirrhosis of liver; I13.0 Hypertensive heart and chronic kidney disease with heart failure and stage 1 through stage 4 chronic kidney disease, or unspecified chronic kidney disease; J44.9 Chronic obstructive pulmonary disease, unspecified; D63.8 Anemia in other chronic diseases classified elsewhere; E87.6 Hypokalemia; G89.29 Other chronic pain; I16.0 Hypertensive urgency; F17.210 Nicotine dependence, cigarettes, uncomplicated; N18.9 Chronic kidney disease, unspecified; Z79.01 Long term (current) use of anticoagulants; I25.2 Old myocardial infarction; Z95.1 Presence of aortocoronary bypass graft; Z82.49 Family history of ischemic heart disease and other diseases of the circulatory system; Z79.899 Other long term (current) drug therapy; Z71.6 Tobacco abuse counseling
CPT/HCPCS: 36415; 71045; 80048; 80053; 80061; 83735; 83880; 84484; 85008; 85025; 87081; 93005; 93308; 94760; 99285; G0378; J1644; J1940; J2270

== ENCOUNTER 2021-03-08 01:48 | Inpatient (IN) | payer MEDICAID ==
[~2021-03-08] VITALS: Ht 177.8 cm; Wt 77.5 kg
[~2021-03-08 01:48] MED LIST changes: -ASPI-611 PO; -EPIN11.7 IH; -FOLI0.4T14 PO; +FURO-149 PO; -FURO-150 PO; -HYDR-4069 PO; +LOSA50TA64 PO; -NITR0.4T51 SL; -OMEP-50 PO; -PYRI-4 PO; -THIA50TA10 PO
[2021-03-08] MEDS ORDERED: NITR0.4T51 SL (02:24)
[2021-03-08] MEDS ORDERED: ISOS30TA84 PO (02:24)
[2021-03-08] MEDS ORDERED: SENN-263 PO (02:24)
[2021-03-08] MEDS ORDERED: HYDR-4069 PO (02:24)
[2021-03-08] MEDS ORDERED: FURO-150 PO (02:24)
[2021-03-08] MEDS ORDERED: PANT-47 PO (02:24)
[2021-03-08] MEDS ORDERED: potassium Cl 40MEQ/1/2NS 520ml 520 ML IV PRN ×2 (03:40)
[2021-03-08] MEDS ORDERED: bisacodyl 10mg suppository rectal RC PRN (03:40)
[2021-03-08] MEDS ORDERED: acetaminophen 650mg rectal suppository RC PRN (03:40)
[2021-03-08] MEDS ORDERED: magnesium hydroxide 30ml (MOM) UD suspension PO PRN (03:40)
[2021-03-08] MEDS ORDERED: morphine 2 MG/ML inj. syringe IV PRN (03:40)
[2021-03-08] MEDS ORDERED: ondansetron 4mg rapidly disintigrating tab PO PRN (03:40)
[2021-03-08] MEDS ORDERED: diphenhydrAMINE 50 mg/ml inj IV PRN (03:40)
[2021-03-08] MEDS ORDERED: HYDROcodone/acetaminophen 5mg/325mg tablet PO PRN (03:40)
[2021-03-08] MEDS ORDERED: ondansetron/PF 4mg/2ml inj IV PRN (03:40)
[2021-03-08] MEDS ORDERED: diphenhydrAMINE 25mg capsule PO PRN (03:40)
[2021-03-08] MEDS ORDERED: acetaminophen 325mg tablet PO PRN ×2 (03:40)
[2021-03-08] MEDS ORDERED: HYDROcodone/acetaminophen 10/325mg tab PO PRN (03:40)
[2021-03-08] MEDS ORDERED: mag hydrox/Alum hydrox/simeth 30ml oral suspension PO PRN (03:40)
[2021-03-08] MEDS ORDERED: HYDROmorphone inj. 0.5 MG/0.5 ML DISP.SYRIN IV PRN (03:40)
[2021-03-08] MEDS ORDERED: furosemide 10 MG/1 ML 10ml inj IV ONE (03:45)
[2021-03-08] MEDS ORDERED: albuterol 2.5 MG/3 ML nebule NEB PRN (03:45)
[2021-03-08] MEDS ORDERED: nitroGLYCERIN 0.4mg SUBLingual tab SL PRN (03:55)
[2021-03-08 04:12] LABS: BASOPHILS % (AUTO) 0.4 % (0-1); EOSINOPHILS % (AUTO) 0.1 % (0-6); HEMATOCRIT 28.4 % (42.0-52.0); HEMOGLOBIN 9.1 g/dl (14.0-17.9); LYMPHOCYTES # (AUTO) 0.4 X10'3 (1.1-4.8); LYMPHOCYTES % (AUTO) 3.1 % (21-51); MEAN CORPUSCULAR HEMOGLOBIN 25.6 PG (27.0-31.0); MEAN CORPUSCULAR VOLUME 80.2 FL (78-98); MEAN PLATELET VOLUME 9.1 FL (7.4-10.4); MONOCYTES # (AUTO) 0.8 X10'3 (0-0.9); MONOCYTES % (AUTO) 6.9 % (2-12); NEUTROPHILS # (AUTO) 10.5 X10'3 (1.8-7.7); NEUTROPHILS % (AUTO) 89.5 % (42-75); PLATELET COUNT 245 X10'3 (140-440); RED BLOOD COUNT 3.54 X10'6 (4.70-6.10); RED CELL DISTRIBUTION WIDTH 20.3 % (11.5-14.5); WHITE BLOOD COUNT 11.8 X10'3 (4.5-11.0)
[2021-03-08] MEDS: morphine 2 MG/ML inj. syringe IV PRN (04:19)
[2021-03-08 04:24] LABS: PARTIAL THROMBOPLASTIN TIME 29 SECONDS (22-32)
[2021-03-08 04:26] LABS: CLARITY,URINE CLEAR (Clear); COLOR,URINE YELLOW (Yellow); GLUCOSE, URINE 100 mg/dl (Neg); KETONES,URINE NEGATIVE (Neg); LEUKOCYTE ESTERASE ,URINE NEGATIVE (Neg); NITRITES, URINE NEGATIVE (Neg); OCCULT BLOOD,URINE MODERATE (Neg); PH,URINE 7.5 (4.8-8.0); PROTEIN,URINE >=300 mg/dl (Neg); UROBILINOGEN,URINE 0.2 E.U/dL (0.2-1.0)
[2021-03-08 04:26] LABS: ALANINE AMINOTRANSFERASE 192 U/L (12-78); ALBUMIN 2.5 G/DL (3.4-5.0); ALBUMIN/GLOBULIN RATIO 0.7 (1.1-1.5); ALKALINE PHOSPHATASE 293 IU/L (46-116); ANION GAP 12 (8-16); ASPARTATE AMINO TRANSFERASE 48 U/L (10-37); BILIRUBIN,TOTAL 0.9 MG/DL (0.1-1.0); BLOOD UREA NITROGEN 45 MG/DL (7-18); BUN/CREATININE RATIO 7.6 (5.4-32.0); CALCIUM 8.3 MG/DL (8.5-10.1); CHLORIDE 90 MMOL/L (99-107); CREATININE 5.96 MG/DL (0.60-1.10); GLUCOSE 126 MG/DL (70-104); POTASSIUM 3.1 MMOL/L (3.5-5.1); SODIUM 130 MMOL/L (135-145); TOTAL CARBON DIOXIDE 28.5 MMOL/L (24-32); TOTAL PROTEIN 6.2 G/DL (6.4-8.2); eGFR 10 ML/MIN
[2021-03-08 04:35] LABS: LIPASE 230 U/L (73-393); MAGNESIUM 3.2 MG/DL (1.5-2.4)
[2021-03-08 04:37] LABS: UA COLLECTION TYPE URINAL
[2021-03-08 04:42] LABS: BACTERIA,URINE NONE SEEN /HPF (Neg); MUCUS STRANDS NONE SEEN /LPF (Neg); SQUAMOUS EPITHELIAL CELL,UR FEW /LPF (FEW); WBC,URINE 0-4 /HPF (0-4)
[2021-03-08 05:03] LABS: HEMOGLOBIN A1C 5.9 % (4.5-6.2)
[2021-03-08 05:18] LABS: PLATELET ESTIMATE NORMAL
[2021-03-08 05:19] LABS: HYPOCHROMASIA 1+
[2021-03-08 05:20] LABS: ELLIPTOCYTES 1+
[2021-03-08] MEDS ORDERED: furosemide 20 MG/2 ML vial IV SCH (08:00)
[2021-03-08] MEDS: nitroGLYCERIN 0.2mg/hour patch TD SCH (08:00)
[2021-03-08] MEDS: K and/or MAG REPLACEMENT MC SCH ×2 (08:00→20:00)
--- NOTE | 2021-03-08 08:50 | NUR ---
Patient in room PCU 3012. I have received report from Briana ACE and had the opportunity to ask questions and assume patient care.
[2021-03-08 08:55] VITALS: BP 129/79
[2021-03-08] MEDS: apixaban 5mg tablet PO SCH (09:57)
[2021-03-08] MEDS: pantoprazole 40mg Tablet.DR PO SCH (09:57)
[2021-03-08] MEDS: carVEDilol 12.5mg tablet PO SCH ×2 (09:57→20:00)
[2021-03-08] MEDS: docusate sod 100mg capsule PO SCH ×2 (09:57→20:00)
[2021-03-08] MEDS: hydrALAZINE 25 MG tablet PO SCH ×2 (09:58→15:25)
[2021-03-08] MEDS: losartan 50mg tablet PO SCH (09:58)
[2021-03-08] MEDS: isosorbide mononitrate 30mg tab.SR.24H PO SCH ×2 (09:58→20:00)
[2021-03-08 11:00] VITALS: BP 141/74
[2021-03-08] MEDS: nicotine 21mg patch - 24 hr TD SCH (12:01)
[2021-03-08 15:00] VITALS: BP 79/53
[2021-03-08 15:15] VITALS: BP 85/55
--- NOTE | 2021-03-08 15:21 | NUR ---
PAGER ID: [phone] MESSAGE: Stephen DYAN ext [phone]. Pt aylin [facility] room 3012A. Acute renal failure pt. Blood pressure currently 85/55 pulse 60. Slightly lethargic, denies any dizziness or feeling faint. No fluids running. Please advise.
--- NOTE | 2021-03-08 15:30 | NUR ---
Md Tillman, did not order fluids due to patient diagnosis and condition. will continue to monitoring patient.
--- NOTE | 2021-03-08 18:23 | NUR ---
Paged Rusu about Pt's K+ 3.1 to verify if replacement protocol is to be followed as patient is acute renal failure and at risk for hyperkalemia.
--- NOTE | 2021-03-08 18:55 | NUR ---
Problems reprioritized. Patient report given, questions answered & plan of care reviewed with Tamir ACE.
[2021-03-08] MEDS ORDERED: temazepam 15mg capsule PO PRN (21:00)
[2021-03-09] MEDS: apixaban 5mg tablet PO SCH ×3 (00:40→20:18)
[2021-03-09] MEDS: potassium Cl 20 mEq SR tablet PO PRN ×4 (00:40→20:18)
[2021-03-09] MEDS: morphine 2 MG/ML inj. syringe IV PRN ×2 (00:40→20:11)
[2021-03-09] MEDS: pantoprazole 40mg Tablet.DR PO SCH ×3 (00:41→20:18)
--- NOTE | 2021-03-09 05:44 | NUR ---
Patient in room PCU 3012. I have received report from Demetrius ACE and had the opportunity to ask questions and assume patient care.
[2021-03-09 06:39] LABS: BASOPHILS # (AUTO) 0.1 X10'3 (0-0.2); BASOPHILS % (AUTO) 0.8 % (0-1); EOSINOPHILS # (AUTO) 0.1 X10'3 (0-0.9); EOSINOPHILS % (AUTO) 0.8 % (0-6); HEMATOCRIT 25.9 % (42.0-52.0); HEMOGLOBIN 8.4 g/dl (14.0-17.9); LYMPHOCYTES # (AUTO) 0.9 X10'3 (1.1-4.8); LYMPHOCYTES % (AUTO) 12.7 % (21-51); MEAN CORPUSCULAR HEMOGLOBIN 25.9 PG (27.0-31.0); MEAN CORPUSCULAR HGB CONC 32.3 g/dL (33.0-36.5); MEAN CORPUSCULAR VOLUME 80.2 FL (78-98); MEAN PLATELET VOLUME 8.7 FL (7.4-10.4); MONOCYTES # (AUTO) 0.5 X10'3 (0-0.9); MONOCYTES % (AUTO) 7.2 % (2-12); NEUTROPHILS # (AUTO) 5.5 X10'3 (1.8-7.7); NEUTROPHILS % (AUTO) 78.5 % (42-75); PLATELET COUNT 218 X10'3 (140-440); RED BLOOD COUNT 3.24 X10'6 (4.70-6.10); RED CELL DISTRIBUTION WIDTH 20.7 % (11.5-14.5)
--- NOTE | 2021-03-09 06:39 | NUR ---
Patient in room PCU 3012. I have received report from Tamir ACE and had the opportunity to ask questions and assume patient care.
[2021-03-09 06:43] LABS: ALANINE AMINOTRANSFERASE 122 U/L (12-78); ALBUMIN 2.1 G/DL (3.4-5.0); ALBUMIN/GLOBULIN RATIO 0.7 (1.1-1.5); ALKALINE PHOSPHATASE 213 IU/L (46-116); ANION GAP 8 (8-16); ASPARTATE AMINO TRANSFERASE 21 U/L (10-37); BILIRUBIN,TOTAL 0.4 MG/DL (0.1-1.0); BLOOD UREA NITROGEN 49 MG/DL (7-18); BUN/CREATININE RATIO 7.6 (5.4-32.0); CALCIUM 7.9 MG/DL (8.5-10.1); CHLORIDE 92 MMOL/L (99-107); CHOL/HDL RATIO 3.1 (0.00-4.99); CHOLESTEROL 165 MG/DL (0-200); CREATININE 6.47 MG/DL (0.60-1.10); GLUCOSE 108 MG/DL (70-104); HDL CHOLESTEROL 53 MG/DL (35-60); LDL CHOLESTEROL 98 MG/DL (50-100); SODIUM 130 MMOL/L (135-145); TOTAL PROTEIN 5.3 G/DL (6.4-8.2); TRIGLYCERIDES 56 MG/DL (20-135); eGFR 9 ML/MIN
--- NOTE | 2021-03-09 07:11 | NUR ---
PAGER ID: [phone] MESSAGE: JOHN calderon 3012A, Charlie Barber Pt has critical K+ 3.0. Will replace per protocol. Inés [id number] Will continue to monitor.
[2021-03-09 07:30] VITALS: BP_SYST 96; BP_DIAS 4; BP_DIAS 64
[2021-03-09] MEDS: isosorbide mononitrate 30mg tab.SR.24H PO SCH ×2 (07:39→20:19)
[2021-03-09] MEDS: docusate sod 100mg capsule PO SCH ×2 (07:40→20:19)
[2021-03-09] MEDS: nicotine 21mg patch - 24 hr TD SCH (07:42)
[2021-03-09 07:45] LABS: PLATELET ESTIMATE NORMAL
[2021-03-09 07:46] LABS: ANISOCYTOSIS 3+; BURR CELLS 1+; ELLIPTOCYTES 1+; HYPOCHROMASIA 1+; MICROCYTOSIS 1+
[2021-03-09] MEDS: losartan 50mg tablet PO SCH (08:00)
[2021-03-09] MEDS: carVEDilol 12.5mg tablet PO SCH ×2 (08:00→20:19)
[2021-03-09] MEDS: K and/or MAG REPLACEMENT MC SCH ×2 (08:00→20:00)
[2021-03-09] MEDS: nitroGLYCERIN 0.2mg/hour patch TD SCH (08:00)
[2021-03-09] MEDS: hydrALAZINE 25 MG tablet PO SCH ×3 (08:00→16:00)
--- NOTE | 2021-03-09 08:00 | NUR ---
unable to weigh patient - patient refused. Will continue to monitor.
[2021-03-09 11:00] VITALS: BP 94/61
--- NOTE | 2021-03-09 12:58 | NUR ---
PAGER ID: [phone] MESSAGE: re: room 3012A, Charlie Barber held pt's a.m. meds: Apresoline, Coreg, Losartan, Nitropatch due to BP 94/61, HR 60; BP now is 94/61, HR-62. No urine this a.m.; x1 void on NOCs. Inés [id number] winding inspector and tester aware. Will continue to monitor.
--- NOTE | 2021-03-09 13:45 | NUR ---
Pt wanted to try to void per urinal one more time, successfully voided 275cc clear yellow urine. Bladder scan shows no residual. sheet metal shop supervisor aware. Will continue to monitor
[2021-03-09 15:00] VITALS: BP 119/79
--- NOTE | 2021-03-09 16:41 | NUR ---
Pt has been in the shower, will give 1600 Apresoline once done. Will continue to monitor
--- NOTE | 2021-03-09 16:50 | NUR ---
1600 APRESOLINE NOT GIVEN, AWARE - PT'S BP 98/65, HR-78 WILL CONTINUE TO MONITOR.
--- NOTE | 2021-03-09 18:45 | NUR ---
Problems reprioritized. Patient report given, questions answered & plan of care reviewed with Seema ACE.
--- NOTE | 2021-03-09 18:45 | NUR ---
Patient in room PCU 3012. I have received report from Inés ACE and had the opportunity to ask questions and assume patient care.
[2021-03-09 20:00] VITALS: BP 124/82
[2021-03-10 00:11] VITALS: BP 110/70
[2021-03-10] MEDS: hydrALAZINE 25 MG tablet PO SCH (00:19)
[2021-03-10] MEDS: potassium Cl 20 mEq SR tablet PO PRN (00:19)
[2021-03-10 04:00] VITALS: BP 102/70
--- NOTE | 2021-03-10 04:00 | NUR ---
Bladder scanned patient as only 50cc in urinal and patient stated that he did not need to void anymore. Scan revealed only 50cc in bladder.
[2021-03-10] MEDS: morphine 2 MG/ML inj. syringe IV PRN (04:14)
[2021-03-10 06:35] LABS: BASOPHILS % (AUTO) 0.4 % (0-1); EOSINOPHILS % (AUTO) 0.1 % (0-6); HEMATOCRIT 24.7 % (42.0-52.0); HEMOGLOBIN 7.9 g/dl (14.0-17.9); LYMPHOCYTES # (AUTO) 0.3 X10'3 (1.1-4.8); MEAN CORPUSCULAR HEMOGLOBIN 25.5 PG (27.0-31.0); MEAN CORPUSCULAR VOLUME 79.5 FL (78-98); MEAN PLATELET VOLUME 8.8 FL (7.4-10.4); MONOCYTES # (AUTO) 0.2 X10'3 (0-0.9); MONOCYTES % (AUTO) 2.6 % (2-12); NEUTROPHILS # (AUTO) 7.6 X10'3 (1.8-7.7); NEUTROPHILS % (AUTO) 92.9 % (42-75); PLATELET COUNT 209 X10'3 (140-440); RED BLOOD COUNT 3.11 X10'6 (4.70-6.10); RED CELL DISTRIBUTION WIDTH 20.6 % (11.5-14.5); WHITE BLOOD COUNT 8.2 X10'3 (4.5-11.0)
--- NOTE | 2021-03-10 06:35 | NUR ---
Problems reprioritized. Patient report given, questions answered & plan of care reviewed with Giuliana ACE.
--- NOTE | 2021-03-10 06:39 | NUR ---
Patient in room PCU 3012. I have received report from LENARD ACE and had the opportunity to ask questions and assume patient care.
[2021-03-10 07:00] VITALS: BP 114/71
[2021-03-10 07:04] LABS: ALANINE AMINOTRANSFERASE 90 U/L (12-78); ALBUMIN 2.1 G/DL (3.4-5.0); ALBUMIN/GLOBULIN RATIO 0.7 (1.1-1.5); ALKALINE PHOSPHATASE 200 IU/L (46-116); ANION GAP 8 (8-16); ASPARTATE AMINO TRANSFERASE 19 U/L (10-37); BILIRUBIN,TOTAL 0.4 MG/DL (0.1-1.0); BLOOD UREA NITROGEN 54 MG/DL (7-18); BUN/CREATININE RATIO 8.2 (5.4-32.0); CALCIUM 7.6 MG/DL (8.5-10.1); CHLORIDE 93 MMOL/L (99-107); CREATININE 6.59 MG/DL (0.60-1.10); GLUCOSE 103 MG/DL (70-104); POTASSIUM 5.2 MMOL/L (3.5-5.1); SODIUM 129 MMOL/L (135-145); TOTAL CARBON DIOXIDE 27.6 MMOL/L (24-32); TOTAL PROTEIN 5.2 G/DL (6.4-8.2); eGFR 9 ML/MIN
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
[2021-03-10 08:10] LABS: PLATELET ESTIMATE NORMAL
[2021-03-10 08:11] LABS: ANISOCYTOSIS 3+; BURR CELLS FEW; ELLIPTOCYTES 1+; HYPOCHROMASIA 1+; MICROCYTOSIS 1+; POLYCHROMASIA FEW
--- NOTE | 2021-03-10 11:29 | NUR ---
PT LEFT AMA
[2021-03-12 11:28] LABS: COMPLEMENT C3, SERUM 98 mg/dL (82-167); COMPLEMENT C4, SERUM 24 mg/dL (12-38); IMMUNOGLOBULIN A, QN, SERUM 290 mg/dL (90-386); IMMUNOGLOBULIN G, QN, SERUM 468 mg/dL (603-1613); IMMUNOGLOBULIN M, QN, SERUM 52 mg/dL (20-172)
== END 2021-03-10 07:38 | disposition left against medical advice (07) | DRG 194 ==
LOC: ER 01:48 → ED HOLD 03:44 → PCU 3S 08:47
PROVIDERS: ADMIT Family Medicine; ATTEND Internal Medicine
DX: I13.0 Hypertensive heart and chronic kidney disease with heart failure and stage 1 through stage 4 chronic kidney disease, or unspecified chronic kidney disease (principal); N17.9 Acute kidney failure, unspecified; E87.1 Hypo-osmolality and hyponatremia; I95.9 Hypotension, unspecified; K70.10 Alcoholic hepatitis without ascites; Z95.1 Presence of aortocoronary bypass graft; N18.4 Chronic kidney disease, stage 4 (severe); D64.9 Anemia, unspecified; I50.23 Acute on chronic systolic (congestive) heart failure; Z53.29 Procedure and treatment not carried out because of patient's decision for other reasons; E78.5 Hyperlipidemia, unspecified; E87.6 Hypokalemia; I16.1 Hypertensive emergency; I25.10 Atherosclerotic heart disease of native coronary artery without angina pectoris; I25.2 Old myocardial infarction; Z79.899 Other long term (current) drug therapy; Z91.19 Patient's noncompliance with other medical treatment and regimen; Z82.49 Family history of ischemic heart disease and other diseases of the circulatory system; Z95.5 Presence of coronary angioplasty implant and graft
CPT/HCPCS: 36415; 71250; 76770; 80053; 80061; 81001; 82570; 82784; 83036; 83690; 83735; 83880; 84100; 84133; 84156; 84300; 84443; 84540; 85008; 85025; 85610; 85730; 86160; 86334; 86335; 86803; 87081; 93005; 93306; 94640; 94760; 96374; 99291; G0378; J1940; J2270

== ENCOUNTER 2021-03-12 09:24 | Inpatient (IN) | payer MEDICAID ==
[~2021-03-12] VITALS: Ht 177.8 cm; Wt 77.2 kg
[~2021-03-12 09:24] MED LIST changes: +FURO-150 PO; +HYDR-4069 PO; -ISOS20TA8 PO; +ISOS30TA84 PO; +NITR0.4T51 SL; +PANT-47 PO; +SENN-263 PO
[2021-03-12] MEDS ORDERED: aspirin 81mg tab.chew PO ONE (09:50)
[2021-03-12 11:25] LABS: BASOPHILS % (AUTO) 0.6 % (0-1); EOSINOPHILS % (AUTO) 0.3 % (0-6); HEMATOCRIT 26.4 % (42.0-52.0); HEMOGLOBIN 8.4 g/dl (14.0-17.9); LYMPHOCYTES # (AUTO) 0.5 X10'3 (1.1-4.8); LYMPHOCYTES % (AUTO) 6.9 % (21-51); MEAN CORPUSCULAR HEMOGLOBIN 25.4 PG (27.0-31.0); MEAN CORPUSCULAR VOLUME 79.5 FL (78-98); NEUTROPHILS # (AUTO) 5.9 X10'3 (1.8-7.7); NEUTROPHILS % (AUTO) 79.2 % (42-75); PLATELET COUNT 199 X10'3 (140-440); RED BLOOD COUNT 3.32 X10'6 (4.70-6.10); RED CELL DISTRIBUTION WIDTH 20.9 % (11.5-14.5); WHITE BLOOD COUNT 7.5 X10'3 (4.5-11.0)
[2021-03-12 11:31] LABS: D-DIMER 2.15 MG/L FEU (0-0.50)
[2021-03-12 11:33] LABS: ALANINE AMINOTRANSFERASE 74 U/L (12-78); ALBUMIN 2.5 G/DL (3.4-5.0); ALBUMIN/GLOBULIN RATIO 0.7 (1.1-1.5); ALKALINE PHOSPHATASE 190 IU/L (46-116); ANION GAP 11 (8-16); ASPARTATE AMINO TRANSFERASE 28 U/L (10-37); BILIRUBIN,TOTAL 0.4 MG/DL (0.1-1.0); BLOOD UREA NITROGEN 57 MG/DL (7-18); CHLORIDE 94 MMOL/L (99-107); CREATININE 7.09 MG/DL (0.60-1.10); GLUCOSE 100 MG/DL (70-104); POTASSIUM 3.5 MMOL/L (3.5-5.1); SODIUM 132 MMOL/L (135-145); TOTAL CARBON DIOXIDE 27.4 MMOL/L (24-32); TOTAL PROTEIN 6.3 G/DL (6.4-8.2); eGFR 8 ML/MIN
--- NOTE | 2021-03-12 12:30 | NUR ---
1300 scan with nuclear med
--- NOTE | 2021-03-12 13:05 | NUR ---
To NM at this time via wheelchair.
[2021-03-12] MEDS ORDERED: heparin 10,000 units/1 ML INJ IV ONE ×2 (14:10→15:35)
[2021-03-12 14:15] LABS: PLATELET ESTIMATE NORMAL
[2021-03-12 14:16] LABS: ANISOCYTOSIS 3+; MICROCYTOSIS 1+
[2021-03-12 14:21] LABS: BURR CELLS FEW; ELLIPTOCYTES FEW; HYPOCHROMASIA 1+
[2021-03-12 14:22] LABS: SCHISTOCYTES FEW
[2021-03-12] MEDS: heparin 25,000 UNIT/250ml bag 250 ML IV SCH (15:01)
[2021-03-12] MEDS ORDERED: ALBU8.5H17 INH (15:11)
[2021-03-12] MEDS ORDERED: TIOT18CA3 INH (15:11)
[2021-03-12] MEDS ORDERED: APIX5TAB3 PO (15:11)
[2021-03-12] MEDS ORDERED: magnesium 4gm in 100ml NS 100 ML IV PRN (15:35)
[2021-03-12] MEDS ORDERED: acetaminophen 325mg tablet PO PRN (15:35)
[2021-03-12] MEDS ORDERED: magnesium hydroxide 30ml (MOM) UD suspension PO PRN (15:35)
[2021-03-12] MEDS ORDERED: magnesium 2GM in 50ml NS 50 ML IV PRN (15:35)
[2021-03-12] MEDS ORDERED: heparin 10,000 units/1 ML INJ IV PRN (15:35)
[2021-03-12] MEDS ORDERED: ondansetron/PF 4mg/2ml inj IV PRN (15:35)
[2021-03-12] MEDS ORDERED: ipratropium/albuterol 3ml nebule NEB PRN (15:35)
[2021-03-12] MEDS ORDERED: PERFLUTREN PROTEIN-A MICROSPHR (Optison) 0.22 MG/ML 3ML VIAL IV ONE (15:35)
[2021-03-12] MEDS ORDERED: heparin 25,000 UNIT/250ml bag 250 ML IV SCH (15:35)
[2021-03-12] MEDS ORDERED: potassium Cl 20 mEq SR tablet PO PRN ×2 (15:35)
[2021-03-12] MEDS ORDERED: potassium Cl 40MEQ/1/2NS 520ml 520 ML IV PRN ×2 (15:35)
--- NOTE | 2021-03-12 16:44 | NUR ---
PAT UP TO BATHROOM AT THIS TIME. NO ASSISTANCE NEEDED, PAT STATES HE HAD BM, SAFELY RETURNED TO BED, PAT LAYING ON RIGHT SIDE FOR COMFORT. CALL LIGHT WITHIN REACH.
[2021-03-12] MEDS: K and/or MAG REPLACEMENT MC SCH (20:00)
[2021-03-12] MEDS: sennosides 8.6mg tablet PO SCH (20:32)
[2021-03-12] MEDS: pantoprazole 40mg Tablet.DR PO SCH (20:32)
[2021-03-12] MEDS: carVEDilol 12.5mg tablet PO SCH (20:32)
[2021-03-12] MEDS: isosorbide mononitrate 30mg tab.SR.24H PO SCH (20:33)
[2021-03-12] MEDS: docusate sod 100mg capsule PO SCH (20:33)
[2021-03-12] MEDS: furosemide 20MG tablet PO SCH (20:37)
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
--- NOTE | 2021-03-12 21:12 | NUR ---
sent a page to RT that an atrovent neb is q 6 hr and due at 2000
[2021-03-12] MEDS: ipratropium 0.5 MG/2.5ML nebule IH SCH (21:27)
[2021-03-12] MEDS: albuterol 2.5 MG/3 ML nebule NEB PRN (21:27)
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
[2021-03-13] MEDS: hydrALAZINE 25 MG tablet PO SCH ×4 (00:32→23:39)
[2021-03-13 02:07] LABS: BASOPHILS % (AUTO) 0.7 % (0-1); EOSINOPHILS % (AUTO) 0.6 % (0-6); HEMATOCRIT 23.5 % (42.0-52.0); HEMOGLOBIN 7.6 g/dl (14.0-17.9); LYMPHOCYTES # (AUTO) 0.6 X10'3 (1.1-4.8); LYMPHOCYTES % (AUTO) 9.8 % (21-51); MEAN CORPUSCULAR HEMOGLOBIN 25.4 PG (27.0-31.0); MEAN CORPUSCULAR HGB CONC 32.3 g/dL (33.0-36.5); MEAN CORPUSCULAR VOLUME 78.8 FL (78-98); MEAN PLATELET VOLUME 8.9 FL (7.4-10.4); MONOCYTES # (AUTO) 0.8 X10'3 (0-0.9); NEUTROPHILS % (AUTO) 75.9 % (42-75); PLATELET COUNT 179 X10'3 (140-440); RED BLOOD COUNT 2.98 X10'6 (4.70-6.10); RED CELL DISTRIBUTION WIDTH 20.7 % (11.5-14.5); WHITE BLOOD COUNT 6.5 X10'3 (4.5-11.0)
[2021-03-13] MEDS: ipratropium 0.5 MG/2.5ML nebule IH SCH ×4 (02:23→21:27)
[2021-03-13 02:26] LABS: ALANINE AMINOTRANSFERASE 61 U/L (12-78); ALBUMIN 2.1 G/DL (3.4-5.0); ALBUMIN/GLOBULIN RATIO 0.6 (1.1-1.5); ALKALINE PHOSPHATASE 163 IU/L (46-116); ANION GAP 10 (8-16); ASPARTATE AMINO TRANSFERASE 26 U/L (10-37); BILIRUBIN,TOTAL 0.3 MG/DL (0.1-1.0); BLOOD UREA NITROGEN 59 MG/DL (7-18); BUN/CREATININE RATIO 8.9 (5.4-32.0); CALCIUM 7.7 MG/DL (8.5-10.1); CHLORIDE 94 MMOL/L (99-107); CHOL/HDL RATIO 3.6 (0.00-4.99); CHOLESTEROL 148 MG/DL (0-200); GLUCOSE 127 MG/DL (70-104); HDL CHOLESTEROL 41 MG/DL (35-60); LDL CHOLESTEROL 91 MG/DL (50-100); MAGNESIUM 2.8 MG/DL (1.5-2.4); POTASSIUM 3.8 MMOL/L (3.5-5.1); SODIUM 130 MMOL/L (135-145); TOTAL CARBON DIOXIDE 25.8 MMOL/L (24-32); TOTAL PROTEIN 5.6 G/DL (6.4-8.2); TRIGLYCERIDES 70 MG/DL (20-135); eGFR 9 ML/MIN
[2021-03-13] MEDS: heparin 10,000 units/1 ML INJ IV PRN (03:13)
[2021-03-13] MEDS: heparin 25,000 UNIT/250ml bag 250 ML IV SCH ×2 (03:14→09:51)
[2021-03-13 03:35] LABS: ANISOCYTOSIS 3+; MICROCYTOSIS 1+; PLATELET ESTIMATE NORMAL
--- NOTE | 2021-03-13 04:40 | NUR ---
PT UP AMBULATORY TO BATHROOM WITH STEADY GAIT.
[2021-03-13] MEDS: K and/or MAG REPLACEMENT MC SCH ×2 (08:00→20:00)
[2021-03-13] MEDS ORDERED: furosemide 40mg tablet PO SCH (08:00)
[2021-03-13] MEDS: docusate sod 100mg capsule PO SCH ×2 (08:00→21:06)
[2021-03-13] MEDS: albuterol 2.5 MG/3 ML nebule NEB PRN (08:48)
[2021-03-13] MEDS: isosorbide mononitrate 30mg tab.SR.24H PO SCH ×2 (09:27→21:08)
[2021-03-13] MEDS: furosemide 20MG tablet PO SCH ×2 (09:27→21:06)
[2021-03-13] MEDS: pantoprazole 40mg Tablet.DR PO SCH ×2 (09:27→21:07)
[2021-03-13] MEDS: carVEDilol 12.5mg tablet PO SCH ×2 (09:28→21:08)
[2021-03-13] MEDS: sennosides 8.6mg tablet PO SCH ×2 (09:28→21:06)
[2021-03-13 10:30] VITALS: BP 156/102
--- NOTE | 2021-03-13 10:38 | NUR ---
Patient in room PCU 3017. I have received report from RASHAD paul and had the opportunity to ask questions and assume patient care.
--- NOTE | 2021-03-13 12:13 | NUR ---
sent all pts meds to pharmacy.
--- NOTE | 2021-03-13 14:51 | NUR ---
Page Sent PAGER ID: [phone] MESSAGE: [id number] JEANNE, PT IS HAVING PAIN AND NO PAIN MEDS IN EMAR. THANKS [phone] TORRES
[2021-03-13 15:00] VITALS: BP 107/73
[2021-03-13] MEDS: HYDROcodone/acetaminophen 5mg/325mg tablet PO PRN ×2 (16:21→23:39)
[2021-03-13] MEDS: nicotine 14mg patch - 24hr TD SCH (16:22)
--- NOTE | 2021-03-13 18:31 | NUR ---
Problems reprioritized. Patient report given, questions answered & plan of care reviewed with Amos paul.
[2021-03-13 18:40] VITALS: BP 184/93
--- NOTE | 2021-03-13 18:40 | NUR ---
Patient in room PCU 3017. I have received report from Michelle ACE and had the opportunity to ask questions and assume patient care.
[2021-03-13] MEDS: morphine 2 MG/ML inj. syringe IV PRN (20:58)
[2021-03-13 22:24] VITALS: BP 164/89
[2021-03-14] MEDS: morphine 2 MG/ML inj. syringe IV PRN ×4 (02:21→20:34)
[2021-03-14 02:24] VITALS: BP 155/93
[2021-03-14 02:38] LABS: ALANINE AMINOTRANSFERASE 48 U/L (12-78); ALBUMIN/GLOBULIN RATIO 0.6 (1.1-1.5); ALKALINE PHOSPHATASE 143 IU/L (46-116); ANION GAP 12 (8-16); ASPARTATE AMINO TRANSFERASE 14 U/L (10-37); BILIRUBIN,TOTAL 0.2 MG/DL (0.1-1.0); BLOOD UREA NITROGEN 65 MG/DL (7-18); BUN/CREATININE RATIO 9.7 (5.4-32.0); CALCIUM 7.7 MG/DL (8.5-10.1); CHLORIDE 94 MMOL/L (99-107); CREATININE 6.73 MG/DL (0.60-1.10); GLUCOSE 115 MG/DL (70-104); MAGNESIUM 2.7 MG/DL (1.5-2.4); POTASSIUM 3.7 MMOL/L (3.5-5.1); SODIUM 132 MMOL/L (135-145); TOTAL CARBON DIOXIDE 25.9 MMOL/L (24-32); TOTAL PROTEIN 5.5 G/DL (6.4-8.2); eGFR 9 ML/MIN
[2021-03-14] MEDS: ipratropium 0.5 MG/2.5ML nebule IH SCH ×3 (02:40→14:11)
[2021-03-14 02:44] LABS: BASOPHILS # (AUTO) 0.1 X10'3 (0-0.2); BASOPHILS % (AUTO) 1.2 % (0-1); EOSINOPHILS % (AUTO) 0.8 % (0-6); HEMATOCRIT 22.9 % (42.0-52.0); HEMOGLOBIN 7.4 g/dl (14.0-17.9); LYMPHOCYTES # (AUTO) 0.9 X10'3 (1.1-4.8); LYMPHOCYTES % (AUTO) 17.3 % (21-51); MEAN CORPUSCULAR HEMOGLOBIN 25.5 PG (27.0-31.0); MEAN CORPUSCULAR HGB CONC 32.3 g/dL (33.0-36.5); MEAN CORPUSCULAR VOLUME 79.1 FL (78-98); MEAN PLATELET VOLUME 9.3 FL (7.4-10.4); MONOCYTES # (AUTO) 0.8 X10'3 (0-0.9); NEUTROPHILS # (AUTO) 3.6 X10'3 (1.8-7.7); NEUTROPHILS % (AUTO) 66.7 % (42-75); PLATELET COUNT 201 X10'3 (140-440); RED BLOOD COUNT 2.89 X10'6 (4.70-6.10); RED CELL DISTRIBUTION WIDTH 20.6 % (11.5-14.5); WHITE BLOOD COUNT 5.4 X10'3 (4.5-11.0)
[2021-03-14 04:00] LABS: PLATELET ESTIMATE NORMAL
[2021-03-14 04:01] LABS: ANISOCYTOSIS 3+; MICROCYTOSIS 1+
[2021-03-14] MEDS: heparin 25,000 UNIT/250ml bag 250 ML IV SCH ×2 (04:14→20:30)
[2021-03-14] MEDS: heparin 10,000 units/1 ML INJ IV PRN (04:15)
[2021-03-14 06:00] VITALS: BP 154/98
--- NOTE | 2021-03-14 06:47 | NUR ---
Problems reprioritized. Patient report given, questions answered & plan of care reviewed with Tammy ACE.
--- NOTE | 2021-03-14 07:06 | NUR ---
Patient in room PCU 3017. I have received report from MALKA MACDONALD and had the opportunity to ask questions and assume patient care.
[2021-03-14] MEDS: K and/or MAG REPLACEMENT MC SCH ×2 (08:00→20:00)
[2021-03-14] MEDS: hydrALAZINE 25 MG tablet PO SCH ×2 (08:23→16:12)
[2021-03-14] MEDS: isosorbide mononitrate 30mg tab.SR.24H PO SCH ×2 (08:23→20:34)
[2021-03-14] MEDS: carVEDilol 12.5mg tablet PO SCH ×2 (08:23→20:34)
[2021-03-14] MEDS: furosemide 20MG tablet PO SCH ×2 (08:24→20:35)
[2021-03-14] MEDS: nicotine 14mg patch - 24hr TD SCH (08:24)
[2021-03-14] MEDS: docusate sod 100mg capsule PO SCH ×2 (08:24→20:34)
[2021-03-14] MEDS: pantoprazole 40mg Tablet.DR PO SCH ×2 (08:24→20:34)
[2021-03-14] MEDS: sennosides 8.6mg tablet PO SCH ×2 (08:24→20:34)
[2021-03-14 11:00] VITALS: BP 154/91
[2021-03-14 15:00] VITALS: BP 173/95
[2021-03-14 18:35] VITALS: BP 173/105
--- NOTE | 2021-03-14 18:44 | NUR ---
Patient in room PCU 3017. I have received report from Tammy ACE and had the opportunity to ask questions and assume patient care.
--- NOTE | 2021-03-14 18:48 | NUR ---
Problems reprioritized. Patient report given, questions answered & plan of care reviewed with MALKA MACDONALD.
[2021-03-14 22:18] VITALS: BP 150/98
[2021-03-15] MEDS: heparin 10,000 units/1 ML INJ IV PRN (00:25)
[2021-03-15] MEDS: hydrALAZINE 25 MG tablet PO SCH ×4 (00:27→23:28)
[2021-03-15] MEDS: morphine 2 MG/ML inj. syringe IV PRN ×4 (00:28→20:25)
[2021-03-15 02:15] VITALS: BP 150/98
[2021-03-15] MEDS: ipratropium 0.5 MG/2.5ML nebule IH SCH ×5 (02:45→20:04)
[2021-03-15 06:00] VITALS: BP 181/103
--- NOTE | 2021-03-15 06:27 | NUR ---
Problems reprioritized. Patient report given, questions answered & plan of care reviewed with Tammy ACE.
[2021-03-15 06:41] LABS: BASOPHILS # (AUTO) 0.1 X10'3 (0-0.2); BASOPHILS % (AUTO) 1.3 % (0-1); EOSINOPHILS % (AUTO) 0.7 % (0-6); HEMATOCRIT 24.7 % (42.0-52.0); LYMPHOCYTES % (AUTO) 17.5 % (21-51); MEAN CORPUSCULAR HEMOGLOBIN 25.7 PG (27.0-31.0); MEAN CORPUSCULAR HGB CONC 32.5 g/dL (33.0-36.5); MEAN PLATELET VOLUME 8.7 FL (7.4-10.4); MONOCYTES # (AUTO) 0.7 X10'3 (0-0.9); MONOCYTES % (AUTO) 12.4 % (2-12); NEUTROPHILS # (AUTO) 3.8 X10'3 (1.8-7.7); NEUTROPHILS % (AUTO) 68.1 % (42-75); PLATELET COUNT 227 X10'3 (140-440); RED BLOOD COUNT 3.13 X10'6 (4.70-6.10); RED CELL DISTRIBUTION WIDTH 20.7 % (11.5-14.5); WHITE BLOOD COUNT 5.6 X10'3 (4.5-11.0)
--- NOTE | 2021-03-15 06:42 | NUR ---
Patient in room PCU 3017. I have received report from MALKA MACDONALD, and had the opportunity to ask questions and assume patient care.
--- NOTE | 2021-03-15 06:50 | NUR ---
Patient in room PCU 3017. I have received report from MALKA STEVENSON, and had the opportunity to ask questions and assume patient care.
[2021-03-15 06:52] LABS: ALANINE AMINOTRANSFERASE 39 U/L (12-78); ALBUMIN 2.3 G/DL (3.4-5.0); ALBUMIN/GLOBULIN RATIO 0.6 (1.1-1.5); ALKALINE PHOSPHATASE 147 IU/L (46-116); ANION GAP 11 (8-16); ASPARTATE AMINO TRANSFERASE 11 U/L (10-37); BILIRUBIN,TOTAL 0.3 MG/DL (0.1-1.0); BLOOD UREA NITROGEN 65 MG/DL (7-18); BUN/CREATININE RATIO 10.5 (5.4-32.0); CALCIUM 8.7 MG/DL (8.5-10.1); CHLORIDE 98 MMOL/L (99-107); CREATININE 6.21 MG/DL (0.60-1.10); GLUCOSE 99 MG/DL (70-104); MAGNESIUM 2.7 MG/DL (1.5-2.4); POTASSIUM 4.4 MMOL/L (3.5-5.1); SODIUM 132 MMOL/L (135-145); TOTAL CARBON DIOXIDE 22.9 MMOL/L (24-32); eGFR 9 ML/MIN
[2021-03-15 07:08] LABS: PLATELET ESTIMATE NORMAL
[2021-03-15 07:09] LABS: ANISOCYTOSIS 3+; BURR CELLS 1+; MICROCYTOSIS 1+; POIKILOCYTOSIS FEW
[2021-03-15] MEDS: pantoprazole 40mg Tablet.DR PO SCH ×2 (07:46→20:24)
[2021-03-15] MEDS: furosemide 20MG tablet PO SCH ×2 (07:48→20:24)
[2021-03-15] MEDS: isosorbide mononitrate 30mg tab.SR.24H PO SCH ×2 (07:48→20:24)
[2021-03-15] MEDS: docusate sod 100mg capsule PO SCH ×2 (07:48→20:23)
[2021-03-15] MEDS: carVEDilol 12.5mg tablet PO SCH ×2 (07:49→20:24)
[2021-03-15] MEDS: nicotine 14mg patch - 24hr TD SCH (07:49)
[2021-03-15] MEDS: sennosides 8.6mg tablet PO SCH ×2 (07:49→20:24)
[2021-03-15] MEDS: K and/or MAG REPLACEMENT MC SCH ×2 (08:00→20:00)
[2021-03-15 11:00] VITALS: BP 152/98
[2021-03-15] MEDS: heparin 25,000 UNIT/250ml bag 250 ML IV SCH (13:05)
[2021-03-15] MEDS: HYDROcodone/acetaminophen 5mg/325mg tablet PO PRN ×2 (14:43→23:03)
[2021-03-15 15:00] VITALS: BP 155/104
--- NOTE | 2021-03-15 18:04 | NUR ---
Problems reprioritized. Patient report given, questions answered & plan of care reviewed with MALKA MACDONALD.
[2021-03-15 18:36] VITALS: BP 181/102
--- NOTE | 2021-03-15 18:49 | NUR ---
Patient in room PCU 3017. I have received report from Tammy ACE and had the opportunity to ask questions and assume patient care.
[2021-03-15] MEDS ORDERED: diphenhydrAMINE 25mg capsule PO ONE (21:40)
[2021-03-15 22:15] VITALS: BP 179/113
--- NOTE | 2021-03-16 00:45 | NUR ---
after drawing patients DVT PTT labs, restarted patient's heparin drip and saw that it was unattached. Asked patient who had detached his IV and he said that he had done so himself about an hour prior. Explained to patient the importance of the Heparin drip and that his labs would likely be skewed due to this. Reinforcement likely necessary.
[2021-03-16] MEDS: morphine 2 MG/ML inj. syringe IV PRN (01:26)
[2021-03-16] MEDS: heparin 10,000 units/1 ML INJ IV PRN (01:30)
--- NOTE | 2021-03-16 01:50 | NUR ---
entered patient's room to once again find that he had disconnected his heparin drip. Had a "come to [place]" conversation with the patient regarding the need to have the IV running at all times and to use the call light in the event of needing to do anything he might deem the IV a hindrance for. Reiterated these issues multiple times and the patient seems on board with being compliant
[2021-03-16 02:07] VITALS: BP 155/93
[2021-03-16] MEDS: ipratropium 0.5 MG/2.5ML nebule IH SCH ×3 (02:10→14:48)
[2021-03-16 06:00] VITALS: BP 177/108
--- NOTE | 2021-03-16 06:33 | NUR ---
Patient in room PCU 3017. I have received report from Amos and had the opportunity to ask questions and assume patient care.
--- NOTE | 2021-03-16 06:46 | NUR ---
Problems reprioritized. Patient report given, questions answered & plan of care reviewed with Leonel ACE.
[2021-03-16] MEDS: isosorbide mononitrate 30mg tab.SR.24H PO SCH (07:14)
[2021-03-16] MEDS: nicotine 14mg patch - 24hr TD SCH (07:14)
[2021-03-16] MEDS: pantoprazole 40mg Tablet.DR PO SCH (07:14)
[2021-03-16] MEDS: furosemide 20MG tablet PO SCH (07:14)
[2021-03-16] MEDS: docusate sod 100mg capsule PO SCH (07:14)
[2021-03-16] MEDS: sennosides 8.6mg tablet PO SCH (07:14)
[2021-03-16] MEDS: carVEDilol 12.5mg tablet PO SCH (07:15)
[2021-03-16] MEDS: hydrALAZINE 25 MG tablet PO SCH (07:15)
[2021-03-16] MEDS: heparin 25,000 UNIT/250ml bag 250 ML IV SCH (07:37)
[2021-03-16] MEDS: K and/or MAG REPLACEMENT MC SCH (08:00)
[2021-03-16 09:07] LABS: BASOPHILS # (AUTO) 0.1 X10'3 (0-0.2); BASOPHILS % (AUTO) 1.1 % (0-1); EOSINOPHILS # (AUTO) 0.1 X10'3 (0-0.9); EOSINOPHILS % (AUTO) 0.8 % (0-6); HEMATOCRIT 26.7 % (42.0-52.0); HEMOGLOBIN 8.3 g/dl (14.0-17.9); LYMPHOCYTES % (AUTO) 13.3 % (21-51); MEAN CORPUSCULAR HEMOGLOBIN 25.2 PG (27.0-31.0); MEAN CORPUSCULAR HGB CONC 31.3 g/dL (33.0-36.5); MEAN CORPUSCULAR VOLUME 80.6 FL (78-98); MONOCYTES # (AUTO) 0.6 X10'3 (0-0.9); MONOCYTES % (AUTO) 8.5 % (2-12); NEUTROPHILS # (AUTO) 5.5 X10'3 (1.8-7.7); NEUTROPHILS % (AUTO) 76.3 % (42-75); PLATELET COUNT 273 X10'3 (140-440); RED BLOOD COUNT 3.31 X10'6 (4.70-6.10); RED CELL DISTRIBUTION WIDTH 20.2 % (11.5-14.5); WHITE BLOOD COUNT 7.3 X10'3 (4.5-11.0)
[2021-03-16 09:48] LABS: ALANINE AMINOTRANSFERASE 39 U/L (12-78); ALBUMIN 2.6 G/DL (3.4-5.0); ALBUMIN/GLOBULIN RATIO 0.7 (1.1-1.5); ALKALINE PHOSPHATASE 147 IU/L (46-116); ANION GAP 14 (8-16); ASPARTATE AMINO TRANSFERASE 16 U/L (10-37); BILIRUBIN,TOTAL 0.2 MG/DL (0.1-1.0); BLOOD UREA NITROGEN 61 MG/DL (7-18); CALCIUM 8.9 MG/DL (8.5-10.1); CHLORIDE 100 MMOL/L (99-107); CREATININE 6.09 MG/DL (0.60-1.10); GLUCOSE 110 MG/DL (70-104); MAGNESIUM 2.7 MG/DL (1.5-2.4); POTASSIUM 4.5 MMOL/L (3.5-5.1); SODIUM 136 MMOL/L (135-145); TOTAL CARBON DIOXIDE 22.3 MMOL/L (24-32); TOTAL PROTEIN 6.6 G/DL (6.4-8.2); eGFR 10 ML/MIN
[2021-03-16 09:51] LABS: PLATELET ESTIMATE NORMAL
[2021-03-16 09:52] LABS: ANISOCYTOSIS 3+; BURR CELLS 1+; HYPOCHROMASIA 1+; MICROCYTOSIS 1+; POLYCHROMASIA FEW; ROULEAUX 1+
[2021-03-16 11:00] VITALS: BP 145/94
[2021-03-16] MEDS ORDERED: apixaban 5mg tablet PO SCH (12:00)
--- NOTE | 2021-03-16 13:43 | NUR ---
RE: PCU 17B Elisabeth. Pt is about to be discharged but says he ran out of albuterol and Spiriva breathing treatments at home. The pharmacy he goes to says there are no refills left. Could you prescribe him more? Thanks.
--- NOTE | 2021-03-16 14:28 | NUR ---
PAGER ID: [phone] MESSAGE: RE: [place] 17Cristina Barber. Pt is ready to discharge. Do you want him to follow up with primary for albuterol and Spiriva prescriptions or can we write him a new scrip? let me know when you are free. Thanks.
[2021-03-16] MEDS ORDERED: ALBU8.5H17 INH (14:35)
[2021-03-16] MEDS ORDERED: TIOT18CA3 INH (14:35)
[2021-03-16 15:00] VITALS: BP 178/107
--- NOTE | 2021-03-16 16:36 | NUR ---
Pt discharged home. ID and IV removed. Instructions and f/u explained. Pt verbalized understanding. Ambulated to car independently.
== END 2021-03-16 16:12 | disposition home or self-care (01) | DRG 134 ==
LOC: ER 09:25 → ED HOLD 15:39 → PCU 3S 03-13 10:25
PROVIDERS: ADMIT Family Medicine; ATTEND Internal Medicine
PROC: CB121ZZ Planar Nuclear Medicine Imaging of Lungs and Bronchi using Technetium 99m (Tc-99m) (ICD-10-PCS; principal; 2021-03-12)
DX: I26.99 Other pulmonary embolism without acute cor pulmonale (principal); I13.2 Hypertensive heart and chronic kidney disease with heart failure and with stage 5 chronic kidney disease, or end stage renal disease; I21.A1 Myocardial infarction type 2; D64.9 Anemia, unspecified; E78.00 Pure hypercholesterolemia, unspecified; I50.22 Chronic systolic (congestive) heart failure; J44.9 Chronic obstructive pulmonary disease, unspecified; F17.210 Nicotine dependence, cigarettes, uncomplicated; N18.6 End stage renal disease; Z79.01 Long term (current) use of anticoagulants; Z82.49 Family history of ischemic heart disease and other diseases of the circulatory system; I25.2 Old myocardial infarction; Z85.828 Personal history of other malignant neoplasm of skin; Z86.718 Personal history of other venous thrombosis and embolism; Z86.73 Personal history of transient ischemic attack (TIA), and cerebral infarction without residual deficits; Z91.19 Patient's noncompliance with other medical treatment and regimen; Z95.1 Presence of aortocoronary bypass graft; Z95.5 Presence of coronary angioplasty implant and graft; Z79.899 Other long term (current) drug therapy
CPT/HCPCS: 36415; 71045; 78582; 80053; 80061; 83735; 83880; 84484; 85008; 85025; 85379; 85730; 87081; 93005; 93308; 93970; 94640; 94760; 97116; 97161; 97530; 99285; A9539; A9540; G0378; J1644; J2270; Q0163

== ENCOUNTER 2021-04-05 10:31 | Emergency (ER) | payer MEDICAID ==
[~2021-04-05] VITALS: Ht 177.8 cm; Wt 72.7 kg
[~2021-04-05 10:31] MED LIST changes: -ALBU18HF2 INH; +ALBU8.5H17 INH; -FURO-149 PO; -LOSA50TA64 PO; -TIOT18CA3 IH; +TIOT18CA3 INH
[2021-04-05] MEDS ORDERED: furosemide 20MG tablet PO ONE (17:30)
[2021-04-05] MEDS ORDERED: oxyCODONE IR 5mg (immed. release) tablet PO ONE (17:30)
[2021-04-05] MEDS ORDERED: FURO-150 PO (17:30)
[2021-04-05 18:09] LABS: BASOPHILS # (AUTO) 0.1 X10'3 (0-0.2); BASOPHILS % (AUTO) 1.1 % (0-1); EOSINOPHILS # (AUTO) 0.1 X10'3 (0-0.9); EOSINOPHILS % (AUTO) 0.8 % (0-6); HEMATOCRIT 25.1 % (42.0-52.0); LYMPHOCYTES # (AUTO) 0.6 X10'3 (1.1-4.8); MEAN CORPUSCULAR HEMOGLOBIN 24.8 PG (27.0-31.0); MEAN CORPUSCULAR VOLUME 77.6 FL (78-98); MEAN PLATELET VOLUME 8.7 FL (7.4-10.4); MONOCYTES # (AUTO) 0.6 X10'3 (0-0.9); NEUTROPHILS % (AUTO) 84.1 % (42-75); PLATELET COUNT 242 X10'3 (140-440); RED BLOOD COUNT 3.24 X10'6 (4.70-6.10); RED CELL DISTRIBUTION WIDTH 20.3 % (11.5-14.5); WHITE BLOOD COUNT 8.3 X10'3 (4.5-11.0)
[2021-04-05 18:18] LABS: ALANINE AMINOTRANSFERASE 59 U/L (12-78); ALBUMIN 2.6 G/DL (3.4-5.0); ALBUMIN/GLOBULIN RATIO 0.7 (1.1-1.5); ALKALINE PHOSPHATASE 220 IU/L (46-116); ANION GAP 14 (8-16); ASPARTATE AMINO TRANSFERASE 14 U/L (10-37); BILIRUBIN,TOTAL 0.5 MG/DL (0.1-1.0); BLOOD UREA NITROGEN 63 MG/DL (7-18); BUN/CREATININE RATIO 9.5 (5.4-32.0); CALCIUM 7.4 MG/DL (8.5-10.1); CHLORIDE 91 MMOL/L (99-107); CREATININE 6.66 MG/DL (0.60-1.10); GLUCOSE 137 MG/DL (70-104); SODIUM 129 MMOL/L (135-145); TOTAL CARBON DIOXIDE 23.9 MMOL/L (24-32); TOTAL PROTEIN 6.5 G/DL (6.4-8.2); eGFR 9 ML/MIN
[2021-04-05 18:22] LABS: POTASSIUM 2.3 MMOL/L (3.5-5.1)
[2021-04-05 18:24] LABS: CLARITY,URINE CLEAR (Clear); COLOR,URINE YELLOW (Yellow); PH,URINE 6.5 (4.8-8.0); UA COLLECTION TYPE VOIDED
[2021-04-05 18:25] LABS: GLUCOSE, URINE 100 mg/dl (Neg); KETONES,URINE NEGATIVE (Neg); LEUKOCYTE ESTERASE ,URINE NEGATIVE (Neg); NITRITES, URINE NEGATIVE (Neg); OCCULT BLOOD,URINE SMALL (Neg); PROTEIN,URINE >=1000 mg/dl (Neg); UROBILINOGEN,URINE 0.2 E.U/dL (0.2-1.0)
[2021-04-05] MEDS ORDERED: potassium Cl 20 mEq SR tablet PO STA ×2 (18:26→18:31)
[2021-04-05] MEDS ORDERED: POTA20TA19 PO (18:28)
[2021-04-05] MEDS ORDERED: potassium Cl 10 mEq/100mL bag IV ONE (18:30)
[2021-04-05 18:39] LABS: SQUAMOUS EPITHELIAL CELL,UR FEW /LPF (FEW)
[2021-04-05 18:40] LABS: BACTERIA,URINE NONE SEEN /HPF (Neg)
[2021-04-05 18:41] LABS: RBC,URINE 0-2 /HPF (0-2); WBC,URINE 0-4 /HPF (0-4)
[2021-04-05 19:27] LABS: ANISOCYTOSIS 3+; MICROCYTOSIS 1+; PLATELET ESTIMATE NORMAL; POIKILOCYTOSIS 1+; POLYCHROMASIA FEW
[2021-04-05 20:35] VITALS: BP 164/99
== END 2021-04-05 20:49 | disposition home or self-care (01) ==
LOC: ER 10:33
DX: E87.6 Hypokalemia (principal); R60.0 Localized edema; I13.2 Hypertensive heart and chronic kidney disease with heart failure and with stage 5 chronic kidney disease, or end stage renal disease; E11.22 Type 2 diabetes mellitus with diabetic chronic kidney disease; N18.6 End stage renal disease; I50.89 Other heart failure
CPT/HCPCS: 36415; 80053; 81001; 83735; 85008; 85025; 96365; 99285; J3480

== ENCOUNTER 2021-06-01 04:24 | Emergency (ER) | payer MEDICAID ==
[~2021-06-01] VITALS: Ht 177.8 cm; Wt 72.7 kg
[~2021-06-01 04:24] MED LIST changes: -ALBU8.5H17 INH; +AMLO5TAB16 PO; -CARV-50 PO; +FOLI0.4T6 PO; -FURO-150 PO; -ISOS30TA84 PO; +MULT-25 PO; -NITR0.4T51 SL; -PANT-47 PO; +PANT40TA54 PO; -POTA10CA44 PO; -SENN-263 PO; +THIA50TA10 PO; -TIOT18CA3 INH
[2021-06-01 04:35] VITALS: BP_DIAS 126
[2021-06-01] MEDS ORDERED: thiamine 100mg tablet PO ONE (04:50)
[2021-06-01] MEDS ORDERED: pantoprazole 40mg Tablet.DR PO SCH (04:50)
[2021-06-01] MEDS ORDERED: hyDRALAzine 10mg tablet PO ONE (04:50)
[2021-06-01] MEDS ORDERED: apixaban 5mg tablet PO ONE (04:50)
[2021-06-01] MEDS ORDERED: apixaban 5mg tablet PO SCH (04:50)
[2021-06-01] MEDS ORDERED: amLODIPine 5mg tablet PO ONE (04:50)
[2021-06-01] MEDS ORDERED: pantoprazole 40mg Tablet.DR PO ONE (04:50)
[2021-06-01] MEDS ORDERED: hyDRALAzine 10mg tablet PO SCH (04:50)
[2021-06-01] MEDS ORDERED: folic acid 1mg tablet PO ONE (04:50)
[2021-06-01 05:15] VITALS: BP_SYST 188
== END 2021-06-01 05:20 | disposition home or self-care (01) ==
LOC: ER 04:25
DX: I26.99 Other pulmonary embolism without acute cor pulmonale (principal); I12.0 Hypertensive chronic kidney disease with stage 5 chronic kidney disease or end stage renal disease; N18.6 End stage renal disease; I25.2 Old myocardial infarction; I11.0 Hypertensive heart disease with heart failure; I50.9 Heart failure, unspecified; Z86.711 Personal history of pulmonary embolism; Z95.5 Presence of coronary angioplasty implant and graft; Z99.2 Dependence on renal dialysis; Z79.899 Other long term (current) drug therapy; Z91.19 Patient's noncompliance with other medical treatment and regimen
CPT/HCPCS: 99284